=== PATIENT | male | born 1945 | race Caucasian/White ===

== ENCOUNTER 2019-07-10 10:09 | Emergency (ER) | payer MEDICARE, OTHER ==
--- NOTE | 2019-07-10 10:10 | EDM.PDOC ---
ED HPI GENERAL MEDICAL PROBLEM - General Chief Complaint: Gastrointestinal Problem Stated Complaint: AMBULANCE Time Seen by Provider: 07/10/19 10:10 Source of Information: Reports: Patient, EMS, Old Records, RN, RN Notes Reviewed History Limitations: Reports: No Limitations - History of Present Illness INITIAL COMMENTS - FREE TEXT/NARRATIVE: Pt arrives to ER from home by ambulance with report of onset of upper abdominal pain yesterday with nausea, followed by onset of black tarry stools. Pt states he had been to the clinic yesterday before the symptoms began and was diagnosed with a UTI caused by E-coli. Pt states he has had a poor appetite and nausea as a result of the UTI. Denies blood stool, blood emesis, or coffee ground emesis. Denies Hx of GI bleed. Onset: Gradual Onset Date: 07/09/19 Duration: Day(s):, Constant Location: Reports: Abdomen Quality: Reports: Ache Severity: Moderate Improves with: Reports: None Worsens with: Reports: None Associated Symptoms: Reports: No Other Symptoms - Related Data Allergies Allergy/AdvReac Type Severity Reaction Status Date / Time No Known Allergies Allergy Verified 07/10/19 10:07 Home Meds: Home Meds Ascorbic Acid [Vitamin C] 1 tab PO DAILY 08/12/14 [History] Aspirin [Ecotrin EC] 1 tab PO DAILY 08/12/14 [History] Clopidogrel [Plavix] 1 tab PO DAILY 08/12/14 [History] Multivitamin [Multi Vitamin Daily] 1 tab PO DAILY 08/12/14 [History] Simvastatin [Zocor] 1 tab PO BEDTIME 08/12/14 [History] Zinc 1 tab PO DAILY 08/12/14 [History] Cimetidine [Tagamet Hb] 200 mg PO DAILY 09/30/18 [History] Past Medical History HEENT History: Reports: Impaired Vision Other HEENT History: wears glasses. [place] Cardiovascular History: Reports: Hypertension Respiratory History: Reports: COPD Gastrointestinal History: Reports: Colon Polyp, GERD Genitourinary History: Reports: Acute Renal Failure, Hydronephrosis, Other (See Below) Other Genitourinary History: kidneys under stress due to dehydration Musculoskeletal History: Reports: Osteoarthritis Neurological History: Reports: CVA Psychiatric History: Reports: None Endocrine/Metabolic History: Reports: Other (See Below) Other Endocrine/Metabolic History: pre diabetic Hematologic History: Reports: None Immunologic History: Reports: None Oncologic (Cancer) History: Reports: Bladder, Malignant Melanoma Dermatologic History: Reports: Melanoma, Other (See Below) Other Dermatologic History: removed melanoma growth - Infectious Disease History Infectious Disease History: Reports: Chicken Pox, Measles - Past Surgical History HEENT Surgical History: Reports: Adenoidectomy, Tonsillectomy Cardiovascular Surgical History: Reports: None GI Surgical History: Reports: Colonoscopy, EGD, Polypectomy Other Female Surgeries/Procedures: bladder removed. lymph nodes around bladder removed Male Surgical History: Reports: Cystectomy, Prostatectomy, Vasectomy, Other ( See Below) Neurological Surgical History: Reports: None Musculoskeletal Surgical History: Reports: Shoulder Surgery Other Musculoskeletal Surgeries/Procedures:: left shoulder tendon repair Dermatological Surgical History: Reports: Skin Biopsy Social & Family History - Family History Family Medical History: Noncontributory - Tobacco Use Smoking Status *Q: Current Every Day Smoker Tobacco Use Within Last Twelve Months: Cigarettes - Caffeine Use Caffeine Use: Reports: None ED ROS GENERAL - Review of Systems Review Of Systems: ROS reveals no pertinent complaints other than HPI. ED EXAM, GI/ABD - Physical Exam Exam: See Below Exam Limited By: No Limitations General Appearance: Alert, No Apparent Distress, Thin, Other (Chronically ill appearing) Eyes: Bilateral: Normal Appearance (No scleral icterus), Pale Conjunctiva Nose: Normal Inspection Throat/Mouth: Normal Lips, Normal Voice, No Airway Compromise, Other (Dry oral mucus membranes) Head: Atraumatic, Normocephalic Neck: Normal Inspection, Supple, Non-Tender, Full Range of Motion Respiratory/Chest: No Respiratory Distress, No Accessory Muscle Use, Chest Non- Tender, Decreased Breath Sounds Cardiovascular: Regular Rate, Rhythm GI/Abdominal Exam: Normal Bowel Sounds, Soft, No Organomegaly, No Distention, No Abnormal Bruit, Tender (Mild epigastric tenderness to palpation). No: Guarding, Rigid, Rebound (Male) Exam: Deferred Rectal (Males) Exam: Black Stool, Heme + Stool Back Exam: Normal Inspection Extremities: Normal Inspection, Normal Range of Motion, No Pedal Edema Neurological: Alert, Oriented, No Motor/Sensory Deficits Psychiatric: Normal Mood Skin Exam: Warm, Dry, Intact, No Rash, Pallor Course - Vital Signs Last Recorded V/S: Last Vital Signs Temp 98.1 F 07/10/19 10:09 Pulse 94 07/10/19 10:09 Resp 18 07/10/19 10:09 BP 103/51 L 07/10/19 10:09 Pulse Ox 100 07/10/19 10:09 Orthostatic Blood Pressure [ 77/46 Standing] Orthostatic Blood Pressure [ 93/49 Sitting] Orthostatic Blood Pressure [ 91/43 Supine] Lightheaded with standing. - Orders/Labs/Meds Orders: Active Orders 24 hr Category Date Time Status Peripheral IV Care [RC] . DIRECTED Care 07/10/19 10:24 Active AMYLASE [CHEM] Stat Lab 07/10/19 10:36 Results COMPREHENSIVE METABOLIC PN,CMP [CHEM] Stat Lab 07/10/19 10:36 Results CULTURE URINE [RM] Stat Lab 07/10/19 10:50 Received LIPASE [CHEM] Stat Lab 07/10/19 10:36 Results Lactated Ringers [Ringers, Lactated] 1,000 ml Med 07/10/19 10:28 Active IV .BOLUS Pantoprazole [ProTONIX IV] 40 mg Med 07/10/19 11:15 Active Sodium Chloride 0.9% [Normal Saline] 100 ml IV .CONTINUOS Sodium Chloride 0.9% [Saline Flush] Med 07/10/19 10:24 Active 10 ml FLUSH ASDIRECTED PRN Peripheral IV Insertion Adult [OM.PC] Stat Oth 07/10/19 10:24 Ordered Medication Orders Lactated Ringer's (Ringers, Lactated) 1,000 mls @ 999 mls/hr IV .BOLUS ONE Stop: 07/10/19 11:28 Last Admin: 07/10/19 10:42 Dose: 999 mls/hr Pantoprazole Sodium 40 mg/ (Sodium Chloride) 100 mls @ 20 mls/hr IV .CONTINUOS JUNI Last Admin: 07/10/19 11:14 Dose: 20 mls/hr Sodium Chloride (Saline Flush) 10 ml FLUSH ASDIRECTED PRN PRN Reason: Keep Vein Open Last Admin: 07/10/19 10:42 Dose: 10 ml Labs: Laboratory Tests 07/10/19 07/10/19 07/10/19 Range/Units 10:36 10:36 10:36 WBC 20.5 H (5.0-10.0) 10^3/uL RBC 2.71 L (4.6-6.2) 10^6/uL Hgb 8.2 L (14.0-18.0) g/dL Hct 25.1 L (40.0-54.0) % MCV 92.6 (80-100) fL MCH 30.3 (27.0-34.0) pg MCHC 32.7 L (33.0-35.0) g/dL Plt Count 249 (150-450) 10^3/uL Neut % (Auto) 89.9 H (42.2-75.2) % Lymph % (Auto) 5.4 L (20.5-50.1) % Teller % (Auto) 4.6 (2-8) % Eos % (Auto) 0.0 L (1.0-3.0) % Baso % (Auto) 0.1 (0.0-1.0) % PT 9.5 (9.0-12.0) SEC INR 0.9 (0.9-1.2) APTT 22.5 (22.0-34.0) SEC Sodium 135 (135-145) mmol/L Potassium 4.6 (3.6-5.0) mmol/L Chloride 117 H (101-111) mmol/L Carbon Dioxide 10.0 L (21.0-31.0) mmol/L Anion Gap 12.6 Creatinine 2.9 H (0.6-1.3) mg/dL Est Cr Clr Drug Dosing 23.77 mL/min Estimated GFR (MDRD) 21 Glucose 142 H (74-105) mg/dL Lactic Acid (0.5-2.2) mmol/L Calcium 8.7 (8.4-10.2) mg/dl Total Bilirubin 0.5 (0.2-1.0) mg/dL AST 11 (10-42) IU/L ALT 18 (10-60) IU/L Alkaline Phosphatase 76 (42-121) IU/L Total Protein 6.1 L (6.7-8.2) g/dl Albumin 3.4 (3.2-5.5) g/dl Globulin 2.7 Albumin/Globulin Ratio 1.26 Amylase 67 (28-100) U/L Lipase 40 (22-51) U/L Urine Color (YELLOW) Urine Appearance (CLEAR) Urine pH (5.0-9.0) Ur Specific [place] (1.005-1.030) Urine Protein (NEGATIVE) Urine Glucose (UA) (NEGATIVE) Urine Ketones (NEGATIVE) Urine Occult Blood (NEGATIVE) Urine Nitrite (NEGATIVE) Urine Bilirubin (NEGATIVE) Urine Urobilinogen (0.2-1.0) mg/dL Ur Leukocyte Esterase (NEGATIVE) Urine RBC /HPF Urine WBC (0-5/HPF) /HPF Ur Epithelial Cells (NOT SEEN) /HPF Urine Bacteria (0-FEW/HPF) /HPF Granular Casts (NOT SEEN) /LPF Urine Mucus (NOT SEEN) /LPF 07/10/19 07/10/19 Range/Units 10:36 10:50 WBC (5.0-10.0) 10^3/uL RBC (4.6-6.2) 10^6/uL Hgb (14.0-18.0) g/dL Hct (40.0-54.0) % MCV (80-100) fL MCH (27.0-34.0) pg MCHC (33.0-35.0) g/dL Plt Count (150-450) 10^3/uL Neut % (Auto) (42.2-75.2) % Lymph % (Auto) (20.5-50.1) % Teller % (Auto) (2-8) % Eos % (Auto) (1.0-3.0) % Baso % (Auto) (0.0-1.0) % PT (9.0-12.0) SEC INR (0.9-1.2) APTT (22.0-34.0) SEC Sodium (135-145) mmol/L Potassium (3.6-5.0) mmol/L Chloride (101-111) mmol/L Carbon Dioxide (21.0-31.0) mmol/L Anion Gap Creatinine (0.6-1.3) mg/dL Est Cr Clr Drug Dosing mL/min Estimated GFR (MDRD) Glucose (74-105) mg/dL Lactic Acid 0.9 (0.5-2.2) mmol/L Calcium (8.4-10.2) mg/dl Total Bilirubin (0.2-1.0) mg/dL AST (10-42) IU/L ALT (10-60) IU/L Alkaline Phosphatase (42-121) IU/L Total Protein (6.7-8.2) g/dl Albumin (3.2-5.5) g/dl Globulin Albumin/Globulin Ratio Amylase (28-100) U/L Lipase (22-51) U/L Urine Color Yellow (YELLOW) Urine Appearance Clear (CLEAR) Urine pH 7.0 (5.0-9.0) Ur Specific [place] 1.010 (1.005-1.030) Urine Protein 30 H (NEGATIVE) Urine Glucose (UA) Negative (NEGATIVE) Urine Ketones Negative (NEGATIVE) Urine Occult Blood Trace-intact H (NEGATIVE) Urine Nitrite Negative (NEGATIVE) Urine Bilirubin Negative (NEGATIVE) Urine Urobilinogen 0.2 (0.2-1.0) mg/dL Ur Leukocyte Esterase Small H (NEGATIVE) Urine RBC 5-10 H /HPF Urine WBC >100 H (0-5/HPF) /HPF Ur Epithelial Cells Occasional (NOT SEEN) /HPF Urine Bacteria Few (0-FEW/HPF) /HPF Granular Casts Few (NOT SEEN) /LPF Urine Mucus Few H (NOT SEEN) /LPF Hemoccult stool: Positive Meds: Medications Generic Name Dose Route Start Last Admin Trade Name Freq PRN Reason Stop Dose Admin Lactated Ringer's 1,000 mls @ 999 mls/hr 07/10/19 10:28 07/10/19 10:42 Ringers, Lactated IV 07/10/19 11:28 999 mls/hr .BOLUS ONE Administration Pantoprazole Sodium 40 mg/ 100 mls @ 20 mls/hr 07/10/19 11:15 07/10/19 11:14 Sodium Chloride IV 20 mls/hr .CONTINUOS JUNI Administration Sodium Chloride 10 ml 07/10/19 10:24 07/10/19 10:42 Saline Flush FLUSH 10 ml ASDIRECTED PRN Administration Keep Vein Open Discontinued Medications Generic Name Dose Route Start Last Admin Trade Name Freq PRN Reason Stop Dose Admin Pantoprazole Sodium 80 mg 07/10/19 10:28 07/10/19 10:41 Protonix Iv IVPUSH 07/10/19 10:29 80 mg .BOLUS ONE Administration Departure - Departure Time of Disposition: 11:18 Disposition: DC/Tfer to Acute Hospital 02 Condition: Serious Clinical Impression: Upper GI bleed, Symptomatic anemia Acute on chronic kidney failure Qualifiers: Acute renal failure type: unspecified Chronic kidney disease stage: unspecified stage Qualified Code(s): N17.9 - Acute kidney failure, unspecified; N18.9 - Chronic kidney disease, unspecified - Discharge Information *PRESCRIPTION DRUG MONITORING PROGRAM REVIEWED*: Not Applicable *COPY OF PRESCRIPTION DRUG MONITORING REPORT IN PATIENT VINEET: Not Applicable Forms: ED Department Discharge, Interfacility Transfer EMTALA - My Orders Last 24 Hours: My Active Orders 07/10/19 10:24 Peripheral IV Care [RC] . DIRECTED Sodium Chloride 0.9% [Saline Flush] 10 ml FLUSH ASDIRECTED PRN Peripheral IV Insertion Adult [OM.PC] Stat 07/10/19 10:28 Lactated Ringers [Ringers, Lactated] 1,000 ml IV .BOLUS 07/10/19 10:36 AMYLASE [CHEM] Stat COMPREHENSIVE METABOLIC PN,CMP [CHEM] Stat LIPASE [CHEM] Stat 07/10/19 10:50 CULTURE URINE [RM] Stat 07/10/19 11:15 Pantoprazole [ProTONIX IV] 40 mg Sodium Chloride 0.9% [Normal Saline] 100 ml IV .CONTINUOS - Assessment/Plan Last 24 Hours: My Active Orders 07/10/19 10:24 Peripheral IV Care [RC] . DIRECTED Sodium Chloride 0.9% [Saline Flush] 10 ml FLUSH ASDIRECTED PRN Peripheral IV Insertion Adult [OM.PC] Stat 07/10/19 10:28 Lactated Ringers [Ringers, Lactated] 1,000 ml IV .BOLUS 07/10/19 10:36 AMYLASE [CHEM] Stat COMPREHENSIVE METABOLIC PN,CMP [CHEM] Stat LIPASE [CHEM] Stat 07/10/19 10:50 CULTURE URINE [RM] Stat 07/10/19 11:15 Pantoprazole [ProTONIX IV] 40 mg Sodium Chloride 0.9% [Normal Saline] 100 ml IV .CONTINUOS
[2019-07-10] MEDS ORDERED: Sodium Chloride 0.9% 10 ML Syringe FLUSH PRN (10:24)
[2019-07-10] MEDS ORDERED: Pantoprazole 40 MG Vial IVPUSH ONE (10:28)
[2019-07-10] MEDS ORDERED: Lactated Ringers 1,000 ML IV ONE (10:28)
[2019-07-10 10:35] VITALS: BP 103/51
[2019-07-10 11:09] LABS: ANION GAP 12.6
[2019-07-10] MEDS ORDERED: Pantoprazole 40 MG in Sodium Chloride 0.9% 100 ML IV SCH (11:15)
== END 2019-07-10 11:53 ==
LOC: DL.ED 10:09
DX: K92.2 Gastrointestinal hemorrhage, unspecified (principal); N17.9 Acute kidney failure, unspecified; I12.9 Hypertensive chronic kidney disease with stage 1 through stage 4 chronic kidney disease, or unspecified chronic kidney disease; N18.9 Chronic kidney disease, unspecified; D63.1 Anemia in chronic kidney disease; F17.210 Nicotine dependence, cigarettes, uncomplicated; Z86.73 Personal history of transient ischemic attack (TIA), and cerebral infarction without residual deficits; Z79.82 Long term (current) use of aspirin; Z79.899 Other long term (current) drug therapy
CPT/HCPCS: 36415; 80053; 81001; 82150; 82272; 83605; 83690; 85025; 85610; 85730; 87086; 87088; 87186; 96365; 96368; 96376; 99285; C9113; J7050; J7120

== ENCOUNTER → 2019-10-13 | Day surgery (SDC) | payer OTHER, MEDICARE ==
[~2019-10-13] MED LIST: Benzocaine 20% Topical Spray UD MUCMEM ONE; Dextrose 5%-0.45% NaCl 1,000 ML IV SCH; Midazolam 1 MG/ML 2 ML SDV IV ONE; Midazolam 1 MG/ML 2 ML SDV ONE
--- NOTE | 2019-10-13 10:17 | OR ---
DATE: 10/13/2019 PREOPERATIVE DIAGNOSIS: Personal history of prior duodenal bleeding, duodenal ulcer. POSTOPERATIVE DIAGNOSIS: Personal history of prior duodenal bleeding, duodenal ulcer. PROCEDURE: Esophagogastroduodenoscopy with photographs. ANESTHESIA: Conscious sedation with IV Versed. SPECIMEN: None. OPERATIVE FINDINGS: Persistent fresh blood in the duodenum. I could not identify an active bleeding site, however. He also has just a small hiatal hernia. RECOMMENDATION: He really should be evaluated by an in-hospital admission again. INDICATIONS FOR PROCEDURE: This 73-year-old male had been admitted to [facility] in July of this year for bleeding ulcer. He had a hemoglobin drop to 7 and was transfused. I do not have a new current hemoglobin on him. PROCEDURE IN DETAIL: After adequate preparation, the gastroscope was inserted into the esophagus. This was passed down to the distal esophagus. This shows a small 2 cm hiatal hernia. No evidence of esophagitis or bleeding strictures or masses. The scope was advanced into the stomach. He has some evidence of old blood within the stomach. This was easily irrigated clear and the rest of the exam of the stomach is normal. The scope was advanced through the pylorus into the duodenum. The 1st part of the duodenum appears to be normal, however, there is fresh blood at the junction of the 1st and 2nd parts of the duodenum. It was somewhat difficult to get the scope to pass through this portion. I was able to get down, however, eventually into the 3rd and 4th part of the duodenum. On withdrawal of the scope, he does have active fresh blood in the duodenum, but I could not find a bleeding site. Air was suctioned from the stomach, and the scope removed. [facility] /[id number] CC: [facility]
[2019-10-13 10:34] VITALS: PULSE 67
[2019-10-13 11:07] VITALS: BP 105/58
== END ==
LOC: DL.ENDO 07:34
PROVIDERS: ATTEND Surgery
DX: K26.4 Chronic or unspecified duodenal ulcer with hemorrhage (principal); K44.9 Diaphragmatic hernia without obstruction or gangrene; Z87.11 Personal history of peptic ulcer disease
CPT/HCPCS: 36415; 43235; 85025; A9270; J2250; 43239

== ENCOUNTER 2020-03-31 14:25 | Inpatient (IN) | payer OTHER, MEDICARE ==
[~2020-03-31 14:25] MED LIST changes: -Benzocaine 20% Topical Spray UD MUCMEM ONE; -Dextrose 5%-0.45% NaCl 1,000 ML IV SCH; -Midazolam 1 MG/ML 2 ML SDV IV ONE; -Midazolam 1 MG/ML 2 ML SDV ONE; +Sodium Chloride 0.9% 1,000 ML IV ONE
--- NOTE | 2020-03-31 14:27 | EDM.PDOC ---
ED HPI GENERAL MEDICAL PROBLEM - General Chief Complaint: General Stated Complaint: [facility] S[facility] Time Seen by Provider: 03/31/20 14:15 Source of Information: Reports: Patient History Limitations: Reports: No Limitations - History of Present Illness INITIAL COMMENTS - FREE TEXT/NARRATIVE: This 74 yo male patient was sent to the ED due to low blood pressure and dark stools. The patient was having a telemedicine appointment at the [facility] when he was sent to the ED for further evaluation and treatment. The patient reports he has noticed dark stools over the past 3-4 days. The patient reports he does have a history of a GI bleed about 1 year ago and has been on a "stomach medication" since that incident. The patient is also on Plavix due to a stroke (patient reports the stroke was about 10 years ago). 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 Onset Date: 03/28/20 Duration: Constant Location: Reports: Other Quality: Reports: Other Severity: Moderate Improves with: Reports: None Worsens with: Reports: None Context: Reports: Other Associated Symptoms: Reports: No Other Symptoms - Related Data Allergies Allergy/AdvReac Type Severity Reaction Status Date / Time No Known Allergies Allergy Verified 09/19/19 10:37 Home Meds: Home Meds Clopidogrel [Plavix] 75 mg PO DAILY 08/12/14 [History] Multivitamin [Multi Vitamin Daily] 1 tab PO DAILY 08/12/14 [History] Simvastatin [Zocor] 20 mg PO BEDTIME 08/12/14 [History] Zinc 50 mg PO DAILY 08/12/14 [History] Enalapril [Vasotec] 10 mg PO DAILY 09/19/19 [History] Cyanocobalamin (Vitamin B-12) [Vitamin B-12] 500 mcg PO DAILY 03/31/20 [History] Pantoprazole Sodium [Protonix] 40 mg PO DAILY 03/31/20 [History] cephALEXin [Keflex] 500 mg PO QID 03/31/20 [History] Past Medical History HEENT History: Reports: Impaired Vision, Macular Degeneration Other HEENT History: wears glasses. [place] Cardiovascular History: Reports: Hypertension Respiratory History: Reports: COPD Gastrointestinal History: Reports: Colon Polyp, GERD Genitourinary History: Reports: Acute Renal Failure, Hydronephrosis, Other (See Below) Other Genitourinary History: kidneys under stress due to dehydration Musculoskeletal History: Reports: Osteoarthritis Neurological History: Reports: CVA Psychiatric History: Reports: None Endocrine/Metabolic History: Reports: Other (See Below) Other Endocrine/Metabolic History: pre diabetic Hematologic History: Reports: Blood Transfusion(s) Immunologic History: Reports: None Oncologic (Cancer) History: Reports: Bladder, Malignant Melanoma Dermatologic History: Reports: Melanoma, Other (See Below) Other Dermatologic History: removed melanoma growth - Infectious Disease History Infectious Disease History: Reports: Chicken Pox, Measles Other Infectious Disease History: E-coli history - Past Surgical History Head Surgeries/Procedures: Reports: None HEENT Surgical History: Reports: Adenoidectomy, Tonsillectomy Cardiovascular Surgical History: Reports: None GI Surgical History: Reports: Colonoscopy, EGD, Polypectomy Other Female Surgeries/Procedures: bladder removed. lymph nodes around bladder removed Male Surgical History: Reports: Cystectomy, Prostatectomy, Vasectomy, Other ( See Below) Other Male Surgeries/Procedures: Pt states bladder replacement. Has external catheter. Bladder cancer history Neurological Surgical History: Reports: None Musculoskeletal Surgical History: Reports: Shoulder Surgery Other Musculoskeletal Surgeries/Procedures:: left shoulder tendon repair Dermatological Surgical History: Reports: Skin Biopsy Social & Family History - Family History Family Medical History: Noncontributory - Caffeine Use Caffeine Use: Reports: Soda Caffeine Use Comment: 6 soda daily ED ROS GENERAL - Review of Systems Review Of Systems: Comprehensive ROS is negative, except as noted in HPI. ED EXAM, GENERAL - Physical Exam Exam: See Below Exam Limited By: No Limitations General Appearance: Alert, WD/WN, Mild Distress Eye Exam: Bilateral Eye: EOMI, Normal Inspection, PERRL Ears: Normal External Exam, Normal Canal, Hearing Grossly Normal, Normal TMs Nose: Normal Inspection, Normal Mucosa, No Blood Throat/Mouth: Normal Inspection, Normal Lips, Normal Teeth, Normal Gums, Normal Oropharynx, Normal Voice, No Airway Compromise Head: Atraumatic, Normocephalic Neck: Normal Inspection, Supple, Non-Tender, Full Range of Motion Respiratory/Chest: No Respiratory Distress, Lungs Clear, Normal Breath Sounds, No Accessory Muscle Use, Chest Non-Tender Cardiovascular: Normal Peripheral Pulses, Regular Rate, Rhythm, No Edema, No Gallop, No JVD, No Murmur, No Rub GI/Abdominal: Normal Bowel Sounds, Soft, Non-Tender, No Organomegaly, No Distention, No Abnormal Bruit, No Mass (Male) Exam: Deferred Rectal (Males) Exam: Decreased Rectal Tone Back Exam: Normal Inspection, Full Range of Motion, NT Extremities: Normal Inspection, Normal Range of Motion, Non-Tender, Normal Capillary Refill, No Pedal Edema Neurological: Alert, Oriented, CN II-XII Intact, Normal Cognition, Normal Gait, Normal Reflexes, No Motor/Sensory Deficits Psychiatric: Normal Affect, Normal Mood Skin Exam: Warm, Dry, Intact, Normal Color, No Rash Lymphatic: No Adenopathy Course - Vital Signs Last Recorded V/S: Last Vital Signs Temp 36.2 C 03/31/20 14:08 Pulse 77 03/31/20 14:08 Resp 14 03/31/20 14:08 BP 97/42 L 03/31/20 14:08 Pulse Ox 100 03/31/20 14:08 Orthostatic Blood Pressure [ 82/43 Standing] Orthostatic Blood Pressure [ 83/57 Sitting] Orthostatic Blood Pressure [ 91/45 Supine] - Orders/Labs/Meds Orders: Active Orders 24 hr Category Date Time Status Admission Diagnosis [ADT] Urgent ADT 03/31/20 16:05 Ordered Admission Status [Patient Status] [ADT] Routine ADT 03/31/20 16:05 Ordered Orthostatic Vital Signs [RC] ASDIRECTED Care 03/31/20 14:57 Active Sodium Chloride 0.9% [Normal Saline] 1,000 ml Med 03/31/20 14:15 Active IV .BOLUS Medication Orders Sodium Chloride (Normal Saline) 1,000 mls @ 500 mls/hr IV .BOLUS ONE Stop: 03/31/20 16:14 Last Admin: 03/31/20 14:29 Dose: 500 mls/hr Labs: Laboratory Tests 03/31/20 03/31/20 Range/Units 14:32 14:32 WBC 9.9 (5.0-10.0) 10^3/uL RBC 3.79 L (4.6-6.2) 10^6/uL Hgb 11.3 L D (14.0-18.0) g/dL Hct 33.5 L (40.0-54.0) % MCV 88.4 (80-100) fL MCH 29.8 (27.0-34.0) pg MCHC 33.7 (33.0-35.0) g/dL Plt Count 255 (150-450) 10^3/uL Neut % (Auto) 73.7 (42.2-75.2) % Lymph % (Auto) 13.6 L (20.5-50.1) % Door % (Auto) 9.5 H (2-8) % Eos % (Auto) 3.0 (1.0-3.0) % Baso % (Auto) 0.2 (0.0-1.0) % Add Manual Diff Yes Neutrophils % (Manual) 72 (42-75) % Lymphocytes % (Manual) 15 L (20-50) % Monocytes % (Manual) 10 H (2-8) % Eosinophils % (Manual) 3 (1-3) % Sodium 129 L (136-145) mmol/L Potassium 5.6 H (3.5-5.1) mmol/L Chloride 101 (98-107) mmol/L Carbon Dioxide 13 L (21-32) mmol/L Anion Gap 20.6 H (7-13) mEq/L BUN 147 H (7-18) mg/dL Creatinine 4.75 H (0.70-1.30) mg/dL Est Cr Clr Drug Dosing 14.75 mL/min Estimated GFR (MDRD) 12 BUN/Creatinine Ratio 30.9 (No establ ref range) Glucose 182 H (74-99) mg/dL Calcium 8.2 L (8.5-10.1) mg/dL Total Bilirubin 0.3 (0.2-1.0) mg/dL AST 18 (15-37) U/L ALT 36 (16-63) U/L Alkaline Phosphatase 112 (46-116) U/L Total Protein 7.2 (6.4-8.2) g/dL Albumin 3.3 L (3.4-5.0) g/dL Globulin 3.9 Albumin/Globulin Ratio 0.85 Meds: Medications Generic Name Dose Route Start Last Admin Trade Name Freq PRN Reason Stop Dose Admin Sodium Chloride 1,000 mls @ 500 mls/hr 03/31/20 14:15 03/31/20 14:29 Normal Saline IV 03/31/20 16:14 500 mls/hr .BOLUS ONE Administration Departure - Departure Time of Disposition: 16:07 Disposition: Admitted As Inpatient 67 Condition: Fair Clinical Impression: Hyponatremia Hypotension Qualifiers: Hypotension type: unspecified hypotension type Qualified Code(s): I95.9 - Hypotension, unspecified Renal failure Qualifiers: Renal failure chronicity: unspecified chronicity Qualified Code(s): N19 - Unspecified kidney failure - Discharge Information *PRESCRIPTION DRUG MONITORING PROGRAM REVIEWED*: Not Applicable *COPY OF PRESCRIPTION DRUG MONITORING REPORT IN PATIENT VINEET: Not Applicable Care Plan Goals: Discussed the patient's history, examination and lab results with Dr. Cortez. Dr. Cortez accepted the patient for continued evaluation and management as an inpatient at [facility]. Sepsis Event Note - Evaluation Sepsis Screening Result: No Definite Risk - Focused Exam Vital Signs: Vital Signs Temp Pulse Resp BP Pulse Ox 03/31/20 14:08 36.2 C 77 14 97/42 L 100 Date Exam was Performed: 03/31/20 Time Exam was Performed: 16:07 - My Orders Last 24 Hours: My Active Orders 03/31/20 14:15 Sodium Chloride 0.9% [Normal Saline] 1,000 ml IV .BOLUS 03/31/20 14:57 Orthostatic Vital Signs [RC] ASDIRECTED 03/31/20 16:05 Admission Diagnosis [ADT] Urgent Admission Status [Patient Status] [ADT] Routine - Assessment/Plan Last 24 Hours: My Active Orders 03/31/20 14:15 Sodium Chloride 0.9% [Normal Saline] 1,000 ml IV .BOLUS 03/31/20 14:57 Orthostatic Vital Signs [RC] ASDIRECTED 03/31/20 16:05 Admission Diagnosis [ADT] Urgent Admission Status [Patient Status] [ADT] Routine
[2020-03-31 15:34] LABS: ANION GAP 20.6 mEq/L (7-13)
[2020-03-31] MEDS ORDERED: Ondansetron 4 MG/2 ML SDV IVPUSH PRN (18:00)
[2020-03-31] MEDS ORDERED: Temazepam 15 MG Cap PO PRN (18:00)
[2020-03-31] MEDS ORDERED: Ondansetron 4 MG Tab.DIS PO PRN (18:00)
[2020-03-31] MEDS ORDERED: Sodium Polystyrene Sulfonate 15 GM/60 ML Susp 60 ML Bot PO ONE (18:00)
[2020-03-31] MEDS ORDERED: Acetaminophen/HYDROcodone 325-10 MG Tab PO PRN (18:00)
[2020-03-31] MEDS ORDERED: Acetaminophen 325 MG Tab PO PRN (18:00)
--- NOTE | 2020-03-31 18:00 | PCM.HP ---
H&P History of Present Illness - General Date of Service: 03/31/20 Admit Problem/Dx: Admission Diagnosis/Problem Admission Diagnosis/Problem Hypotension Source of Information: Patient History Limitations: Reports: No Limitations - History of Present Illness Initial Comments - Free Text/Narative: 74-year-old gentleman with multiple medical problems. The patient has a history of prior stroke,History of GI bleed, pre-diabetes, chronic kidney disease stage IV followed by Dr. 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 The patient has been on multiple courses of antibiotics orally for urine infection. His symptoms of her nausea in the mornings. The patient went to the [place] [facility] for complaints of black stool for a few days, nausea in the mornings after taking antibiotics of Keflex. No associated fever or chills. He is incontinent to urine. In the clinic the patient was noted to have a blood pressure in the 80s and was sent to the emergency room. He was found to have multiple lab abnormalities and the provider requested further hospital evaluation and treatment. - Related Data Allergies/Adverse Reactions: Allergies Allergy/AdvReac Type Severity Reaction Status Date / Time No Known Allergies Allergy Verified 09/19/19 10:37 Home Medications: Home Meds Clopidogrel [Plavix] 75 mg PO DAILY 08/12/14 [History] Multivitamin [Multi Vitamin Daily] 1 tab PO DAILY 08/12/14 [History] Simvastatin [Zocor] 20 mg PO BEDTIME 08/12/14 [History] Zinc 50 mg PO DAILY 08/12/14 [History] Enalapril [Vasotec] 10 mg PO DAILY 09/19/19 [History] Ferrous Sulfate [Iron] 325 mg PO DAILY 03/31/20 [History] Pantoprazole Sodium [Protonix] 40 mg PO DAILY 03/31/20 [History] Vit A/C/E AC/Znox/Cupric Oxide [Eye Vitamin-Minerals Tablet] 1 tab PO DAILY [History] cephALEXin [Keflex] 500 mg PO QID 03/31/20 [History] Past Medical History HEENT History: Reports: Impaired Vision, Macular Degeneration Other HEENT History: wears glasses. [place] Cardiovascular History: Reports: Hypertension Respiratory History: Reports: COPD Gastrointestinal History: Reports: Colon Polyp, GERD Other Gastrointestinal History: duodenal ulcer Genitourinary History: Reports: Acute Renal Failure, Hydronephrosis, Other (See Below) Other Genitourinary History: kidneys under stress due to dehydration Musculoskeletal History: Reports: Osteoarthritis Neurological History: Reports: CVA Psychiatric History: Reports: None Endocrine/Metabolic History: Reports: Other (See Below) Other Endocrine/Metabolic History: pre diabetic Hematologic History: Reports: Blood Transfusion(s) Immunologic History: Reports: None Oncologic (Cancer) History: Reports: Bladder, Malignant Melanoma Dermatologic History: Reports: Melanoma, Other (See Below) Other Dermatologic History: removed melanoma growth - Infectious Disease History Infectious Disease History: Reports: Chicken Pox, Measles Other Infectious Disease History: E-coli history - Past Surgical History Head Surgeries/Procedures: Reports: None HEENT Surgical History: Reports: Adenoidectomy, Tonsillectomy Cardiovascular Surgical History: Reports: None GI Surgical History: Reports: Colonoscopy, EGD, Polypectomy Male Surgical History: Reports: Cystectomy, Prostatectomy, Vasectomy, Other ( See Below) Other Male Surgeries/Procedures: Pt states bladder replacement. Has external catheter at HS. Bladder cancer history Endocrine Surgical History: Reports: None Neurological Surgical History: Reports: None Musculoskeletal Surgical History: Reports: Shoulder Surgery Other Musculoskeletal Surgeries/Procedures:: left shoulder tendon repair Dermatological Surgical History: Reports: Skin Biopsy Social & Family History - Family History Family Medical History: Noncontributory - Tobacco Use Smoking Status *Q: Current Every Day Smoker Years of Tobacco use: 50 Packs/Tins Daily: 0.5 - Caffeine Use Caffeine Use: Reports: Soda Caffeine Use Comment: 6 soda daily - Recreational Drug Use Recreational Drug Use: No H&P Review of Systems - Review of Systems: Review Of Systems: See Below General: Reports: Malaise, Weakness. Denies: Fever, Chills Pulmonary: Denies: Shortness of Breath Cardiovascular: Denies: Chest Pain, Edema Gastrointestinal: Denies: Abdominal Pain Musculoskeletal: Denies: Neck Pain Psychiatric: Denies: Confusion Neurological: Reports: Dizziness. Denies: Confusion Exam - Exam Exam: See Below - Vital Signs Vital Signs: Last Vital Signs Temp 97.2 F 03/31/20 14:08 Pulse 77 03/31/20 14:08 Resp 14 03/31/20 14:08 BP 97/42 L 03/31/20 14:08 Pulse Ox 100 03/31/20 14:08 Orthostatic Blood Pressure [ 82/43 Standing] Orthostatic Blood Pressure [ 83/57 Sitting] Orthostatic Blood Pressure [ 91/45 Supine] Weight: 183 lb 3.2 oz - Exam General: Alert, Oriented Neck: Supple Lungs: Clear to Auscultation, Normal Respiratory Effort Cardiovascular: Regular Rate, Regular Rhythm GI/Abdominal Exam: Normal Bowel Sounds, Soft, Non-Tender Extremities: No Pedal Edema - Patient Data Lab Results Last 24 hrs: Laboratory Results - last 24 hr 03/31/20 03/31/20 Range/Units 14:32 14:32 WBC 9.9 (5.0-10.0) 10^3/uL RBC 3.79 L (4.6-6.2) 10^6/uL Hgb 11.3 L D (14.0-18.0) g/dL Hct 33.5 L (40.0-54.0) % MCV 88.4 (80-100) fL MCH 29.8 (27.0-34.0) pg MCHC 33.7 (33.0-35.0) g/dL Plt Count 255 (150-450) 10^3/uL Neut % (Auto) 73.7 (42.2-75.2) % Lymph % (Auto) 13.6 L (20.5-50.1) % Sac % (Auto) 9.5 H (2-8) % Eos % (Auto) 3.0 (1.0-3.0) % Baso % (Auto) 0.2 (0.0-1.0) % Add Manual Diff Yes Neutrophils % (Manual) 72 (42-75) % Lymphocytes % (Manual) 15 L (20-50) % Monocytes % (Manual) 10 H (2-8) % Eosinophils % (Manual) 3 (1-3) % Sodium 129 L (136-145) mmol/L Potassium 5.6 H (3.5-5.1) mmol/L Chloride 101 (98-107) mmol/L Carbon Dioxide 13 L (21-32) mmol/L Anion Gap 20.6 H (7-13) mEq/L BUN 147 H (7-18) mg/dL Creatinine 4.75 H (0.70-1.30) mg/dL Est Cr Clr Drug Dosing 14.75 mL/min Estimated GFR (MDRD) 12 BUN/Creatinine Ratio 30.9 (No establ ref range) Glucose 182 H (74-99) mg/dL Calcium 8.2 L (8.5-10.1) mg/dL Total Bilirubin 0.3 (0.2-1.0) mg/dL AST 18 (15-37) U/L ALT 36 (16-63) U/L Alkaline Phosphatase 112 (46-116) U/L Total Protein 7.2 (6.4-8.2) g/dL Albumin 3.3 L (3.4-5.0) g/dL Globulin 3.9 Albumin/Globulin Ratio 0.85 Result Diagrams: 03/31/20 14:32 03/31/20 14:32 [place] Results Last 24 hrs: Microbiology 03/31/20 14:11 Stool Occult Blood (NICANOR) - Final Stool / Feces - Problem List (1) Hyperkalemia SNOMED Code(s): 48973641 ICD Code: E87.5 - HYPERKALEMIA Status: Acute Current Visit: Yes (2) Diabetes SNOMED Code(s): 11934701 ICD Code: E11.9 - TYPE 2 DIABETES MELLITUS WITHOUT COMPLICATIONS Status: Acute Current Visit: Yes (3) Peripheral artery disease SNOMED Code(s): 685179949 ICD Code: I73.9 - PERIPHERAL VASCULAR DISEASE, UNSPECIFIED Status: Acute Current Visit: Yes (4) Hyponatremia SNOMED Code(s): 71639508 ICD Code: E87.1 - HYPO-OSMOLALITY AND HYPONATREMIA Status: Acute Current Visit: Yes (5) Hypotension SNOMED Code(s): 18303329 ICD Code: I95.9 - HYPOTENSION, UNSPECIFIED Status: Acute Current Visit: Yes Qualifiers: Hypotension type: unspecified hypotension type Qualified Code(s): I95.9 - Hypotension, unspecified (6) Renal failure SNOMED Code(s): 34308770 ICD Code: N19 - UNSPECIFIED KIDNEY FAILURE Status: Acute Current Visit: Yes Qualifiers: Renal failure chronicity: unspecified chronicity Qualified Code(s): N19 - Unspecified kidney failure (7) Acute on chronic kidney failure SNOMED Code(s): 903281804 ICD Code: N17.9 - ACUTE KIDNEY FAILURE, UNSPECIFIED; N18.9 - CHRONIC KIDNEY DISEASE, UNSPECIFIED Status: Acute Current Visit: No Qualifiers: Acute renal failure type: unspecified Chronic kidney disease stage: unspecified stage Qualified Code(s): N17.9 - Acute kidney failure, unspecified ; N18.9 - Chronic kidney disease, unspecified Problem List Initiated/Reviewed/Updated: Yes Orders Last 24hrs: Active Orders 24 hr Category Date Time Status Admission Diagnosis [ADT] Urgent ADT 03/31/20 16:05 Ordered Admission Status [Patient Status] [ADT] Routine ADT 03/31/20 16:05 Active Glucose [Blood Glucose Check, Bedside] [RC] QIDACANDBED Care 03/31/20 17:41 Ordered Orthostatic Vital Signs [RC] ASDIRECTED Care 03/31/20 14:57 Active BASIC METABOLIC PANEL,BMP [CHEM] AM Lab 04/01/20 05:15 Ordered CBC WITH AUTO DIFF [HEME] AM Lab 04/01/20 05:15 Ordered CULTURE URINE [RM] Routine Lab 03/31/20 17:47 Ordered UA W/MICROSCOPIC [URIN] Routine Lab 03/31/20 17:47 Ordered Clopidogrel [Plavix] Med 04/01/20 09:00 Ordered 75 mg PO DAILY Ferrous Sulfate Med 04/01/20 09:00 Ordered 325 mg PO DAILY Insulin Lispro [HumaLOG] Med 03/31/20 21:00 Ordered See Protocol SUBCUT ACBED Multivitamin [Multi-Vitamin Daily] Med 04/01/20 09:00 Ordered 1 tab PO DAILY Pantoprazole Sodium [Protonix] Med 04/01/20 09:00 Ordered 40 mg PO DAILY Simvastatin [Zocor] Med 03/31/20 21:00 Ordered 20 mg PO BEDTIME Sodium Chloride 0.9% @ 100 MLS/HR(1,000ml) Med 03/31/20 17:45 Ordered Sodium Chloride 0.9% [Normal Saline] 1,000 ml IV ASDIRECTED Sodium Polystyrene Sulfonate [Kayexalate] Med 03/31/20 17:40 Once 45 gm PO NOW ONE Vit A/C/E AC/Znox/Cupric Oxide [Eye Vitamin-Minerals Med 04/01/20 09:00 Ordered Tablet] 1 tab PO DAILY Zinc [Zinc] Med 04/01/20 09:00 Ordered 50 mg PO DAILY Medication Orders Clopidogrel Bisulfate (Plavix) 75 mg PO DAILY JUNI Ferrous Sulfate (Ferrous Sulfate) 325 mg PO DAILY JUNI Sodium Chloride (Normal Saline) 1,000 mls @ 100 mls/hr IV ASDIRECTED [facility] Insulin Human Lispro (Humalog) 0 unit SUBCUT ACBED JUNI; Protocol Non-Formulary Medication (Multivitamin [Multi-Vitamin Daily]) 1 tab PO DAILY JUNI Non-Formulary Medication (Pantoprazole Sodium [Protonix]) 40 mg PO DAILY JUNI Non-Formulary Medication (Simvastatin [Zocor]) 20 mg PO BEDTIME JUNI Non-Formulary Medication (Vit A/C/E Ac/Znox/Cupric Oxide [Eye Vitamin-Minerals Tablet]) 1 tab PO DAILY JUNI Non-Formulary Medication (Zinc [Zinc]) 50 mg PO DAILY JUNI Sodium Polystyrene Sulfonate (Kayexalate) 45 gm PO NOW ONE Stop: 03/31/20 17:41 Assessment/Plan Comment:: Presented with nausea in the mornings, black stool. Was found to have worsening renal failure, hyperkalemia and hyponatremia. Acute renal failure with a history of chronic kidney disease stage IV Bun 142, Cr. 2.9 in jul 2019 Well hold QUEENIE inhibitor Hydrate the patient Recheck electrolytes and renal function in the morning Consider nephrology consultation soon as outpatient Renal ultrasound in the morning Hyperkalemia, hyponatremia with advanced renal failure Stop QUEENIE inhibitor Give Kayexalate Hydration Hypotension noted in the emergency room Well hold QUEENIE inhibitor Give IV fluids History of stroke Continue Plavix History of prior GI bleed Continue proton pump inhibitor Abnormal UA In the setting of neobladder for history of bladder cancer Check UA For now hold off on antibiotics Black stool With history of iron deficiency anemia on iron Occult blood was negative from stool Anemia might be secondary to renal failure as well Well monitor hemoglobin Expect some drop with hydration Continue proton pump inhibitor and iron Diabetes Was told he has prediabetes On no home medications Will follow blood sugars Use supplemental insulin as needed DVT prophylaxis with subcutaneous heparin Will discontinue if there is evidence of GI bleed
[2020-03-31] MEDS: Sodium Chloride 0.9% 1,000 ML IV SCH (18:31)
[2020-03-31] MEDS: Simvastatin 10 MG Tab PO SCH (21:42)
[2020-03-31] MEDS: Heparin Sodium 5,000 Units/ML Vial SUBCUT SCH (21:43)
[2020-03-31] MEDS: Insulin Lispro 100 Units/ML 3 ML Vial SUBCUT SCH (23:14)
[2020-04-01] MEDS: Sodium Chloride 0.9% 1,000 ML IV SCH ×3 (03:31→23:13)
[2020-04-01] MEDS: Heparin Sodium 5,000 Units/ML Vial SUBCUT SCH ×3 (05:41→21:04)
[2020-04-01] MEDS: Pantoprazole 40 MG Tab.CR PO SCH (05:42)
[2020-04-01 06:44] LABS: ANION GAP 18.1 mEq/L (7-13)
[2020-04-01] MEDS: Insulin Lispro 100 Units/ML 3 ML Vial SUBCUT SCH ×2 (08:17→11:25)
[2020-04-01] MEDS ORDERED: ZINC 50 MG PO SCH (09:00)
[2020-04-01] MEDS ORDERED: Non-Formulary Medication 1 Each (Vit A/C/E Ac/Znox/Cupric Oxide [Eye Vitamin-Minerals Tabl PO SCH (09:00)
[2020-04-01] MEDS: Multivitamins,Therapeutic Tab PO SCH (09:44)
[2020-04-01] MEDS: Clopidogrel 75 MG Tab PO SCH (09:44)
[2020-04-01] MEDS: Ferrous Sulfate 325 MG Tab PO SCH (09:44)
--- NOTE | 2020-04-01 11:11 | PCM.PN ---
- General Info Date of Service: 04/01/20 Admission Dx/Problem (Free Text): Admission Diagnosis/Problem Admission Diagnosis/Problem Hypotension Subjective Update: Remained stable. Had multiple bowel movements following Kayexalate. Stool was black. No blood in it. No associated abdominal pain. No chest pain, no shortness of breath. Did not develop edema. Has been generally weak, had associated nausea prior to admission 4 days. Functional Status: Reports: Tolerating Diet - Review of Systems General: Reports: Weakness Pulmonary: Denies: Shortness of Breath, Wheezing Cardiovascular: Denies: Chest Pain, Edema Genitourinary: Reports: Incontinence - Patient Data Vitals - Most Recent: Last Vital Signs Temp 98.7 F 04/01/20 08:00 Pulse 71 04/01/20 08:00 Resp 18 04/01/20 08:00 BP 97/45 L 04/01/20 08:00 Pulse Ox 100 04/01/20 08:00 Orthostatic Blood Pressure [ 82/43 Standing] Orthostatic Blood Pressure [ 83/57 Sitting] Orthostatic Blood Pressure [ 91/45 Supine] Weight - Most Recent: 183 lb 3.2 oz I&O - Last 24 Hours: Intake & Output 03/31/20 04/01/20 04/01/20 22:59 06:59 14:59 Intake Total 617 550 Output Total 100 975 Balance 517 -425 Lab Results Last 24 Hours: Laboratory Results - last 24 hr 03/31/20 03/31/20 03/31/20 Range/Units 14:32 14:32 20:10 WBC 9.9 (5.0-10.0) 10^3/uL RBC 3.79 L (4.6-6.2) 10^6/uL Hgb 11.3 L D (14.0-18.0) g/dL Hct 33.5 L (40.0-54.0) % MCV 88.4 (80-100) fL MCH 29.8 (27.0-34.0) pg MCHC 33.7 (33.0-35.0) g/dL Plt Count 255 (150-450) 10^3/uL Neut % (Auto) 73.7 (42.2-75.2) % Lymph % (Auto) 13.6 L (20.5-50.1) % [place] % (Auto) 9.5 H (2-8) % Eos % (Auto) 3.0 (1.0-3.0) % Baso % (Auto) 0.2 (0.0-1.0) % Add Manual Diff Yes Neutrophils % (Manual) 72 (42-75) % Lymphocytes % (Manual) 15 L (20-50) % Monocytes % (Manual) 10 H (2-8) % Eosinophils % (Manual) 3 (1-3) % Sodium 129 L (136-145) mmol/L Potassium 5.6 H (3.5-5.1) mmol/L Chloride 101 (98-107) mmol/L Carbon Dioxide 13 L (21-32) mmol/L Anion Gap 20.6 H (7-13) mEq/L BUN 147 H (7-18) mg/dL Creatinine 4.75 H (0.70-1.30) mg/dL Est Cr Clr Drug Dosing 14.75 mL/min Estimated GFR (MDRD) 12 BUN/Creatinine Ratio 30.9 (No establ ref range) Glucose 182 H (74-99) mg/dL POC Glucose (83-110) mg/dl Calcium 8.2 L (8.5-10.1) mg/dL Total Bilirubin 0.3 (0.2-1.0) mg/dL AST 18 (15-37) U/L ALT 36 (16-63) U/L Alkaline Phosphatase 112 (46-116) U/L Total Protein 7.2 (6.4-8.2) g/dL Albumin 3.3 L (3.4-5.0) g/dL Globulin 3.9 Albumin/Globulin Ratio 0.85 Urine Color Yellow (YELLOW) Urine Appearance Turbid (CLEAR) Urine pH 6.5 (5.0-9.0) Ur Specific [place] 1.020 (1.005-1.030) Urine Protein Trace H (NEGATIVE) Urine Glucose (UA) Negative (NEGATIVE) Urine Ketones Negative (NEGATIVE) Urine Occult Blood Trace-lysed H (NEGATIVE) Urine Nitrite Positive H (NEGATIVE) Urine Bilirubin Negative (NEGATIVE) Urine Urobilinogen 0.2 (0.2-1.0) mg/dL Ur Leukocyte Esterase Trace H (NEGATIVE) Urine RBC 5-10 H /HPF Urine WBC 50-75 H (0-5/HPF) /HPF Ur Epithelial Cells Rare (NOT SEEN) /HPF Amorphous Sediment Moderate (NOT SEEN) /HPF Urine Bacteria Occasional (0-FEW/HPF) /HPF Urine Mucus Few H (NOT SEEN) /LPF 03/31/20 04/01/20 04/01/20 Range/Units 20:48 06:19 06:19 WBC 8.0 (5.0-10.0) 10^3/uL RBC 3.42 L (4.6-6.2) 10^6/uL Hgb 10.1 L (14.0-18.0) g/dL Hct 30.3 L (40.0-54.0) % MCV 88.6 (80-100) fL MCH 29.5 (27.0-34.0) pg MCHC 33.3 (33.0-35.0) g/dL Plt Count 255 (150-450) 10^3/uL Neut % (Auto) 64.0 (42.2-75.2) % Lymph % (Auto) 20.4 L (20.5-50.1) % [place] % (Auto) 9.3 H (2-8) % Eos % (Auto) 5.9 H (1.0-3.0) % Baso % (Auto) 0.4 (0.0-1.0) % Add Manual Diff Neutrophils % (Manual) (42-75) % Lymphocytes % (Manual) (20-50) % Monocytes % (Manual) (2-8) % Eosinophils % (Manual) (1-3) % Sodium 137 (136-145) mmol/L Potassium 5.1 (3.5-5.1) mmol/L Chloride 107 (98-107) mmol/L Carbon Dioxide 17 L (21-32) mmol/L Anion Gap 18.1 H (7-13) mEq/L BUN 130 H (7-18) mg/dL Creatinine 3.77 H (0.70-1.30) mg/dL Est Cr Clr Drug Dosing 18.59 mL/min Estimated GFR (MDRD) 16 BUN/Creatinine Ratio (No establ ref range) Glucose 84 (74-99) mg/dL POC Glucose 103 (83-110) mg/dl Calcium 8.0 L (8.5-10.1) mg/dL Total Bilirubin (0.2-1.0) mg/dL AST (15-37) U/L ALT (16-63) U/L Alkaline Phosphatase (46-116) U/L Total Protein (6.4-8.2) g/dL Albumin (3.4-5.0) g/dL Globulin Albumin/Globulin Ratio Urine Color (YELLOW) Urine Appearance (CLEAR) Urine pH (5.0-9.0) Ur Specific [place] (1.005-1.030) Urine Protein (NEGATIVE) Urine Glucose (UA) (NEGATIVE) Urine Ketones (NEGATIVE) Urine Occult Blood (NEGATIVE) Urine Nitrite (NEGATIVE) Urine Bilirubin (NEGATIVE) Urine Urobilinogen (0.2-1.0) mg/dL Ur Leukocyte Esterase (NEGATIVE) Urine RBC /HPF Urine WBC (0-5/HPF) /HPF Ur Epithelial Cells (NOT SEEN) /HPF Amorphous Sediment (NOT SEEN) /HPF Urine Bacteria (0-FEW/HPF) /HPF Urine Mucus (NOT SEEN) /LPF 04/01/20 Range/Units 08:02 WBC (5.0-10.0) 10^3/uL RBC (4.6-6.2) 10^6/uL Hgb (14.0-18.0) g/dL Hct (40.0-54.0) % MCV (80-100) fL MCH (27.0-34.0) pg MCHC (33.0-35.0) g/dL Plt Count (150-450) 10^3/uL Neut % (Auto) (42.2-75.2) % Lymph % (Auto) (20.5-50.1) % [place] % (Auto) (2-8) % Eos % (Auto) (1.0-3.0) % Baso % (Auto) (0.0-1.0) % Add Manual Diff Neutrophils % (Manual) (42-75) % Lymphocytes % (Manual) (20-50) % Monocytes % (Manual) (2-8) % Eosinophils % (Manual) (1-3) % Sodium (136-145) mmol/L Potassium (3.5-5.1) mmol/L Chloride (98-107) mmol/L Carbon Dioxide (21-32) mmol/L Anion Gap (7-13) mEq/L BUN (7-18) mg/dL Creatinine (0.70-1.30) mg/dL Est Cr Clr Drug Dosing mL/min Estimated GFR (MDRD) BUN/Creatinine Ratio (No establ ref range) Glucose (74-99) mg/dL POC Glucose 86 (83-110) mg/dl Calcium (8.5-10.1) mg/dL Total Bilirubin (0.2-1.0) mg/dL AST (15-37) U/L ALT (16-63) U/L Alkaline Phosphatase (46-116) U/L Total Protein (6.4-8.2) g/dL Albumin (3.4-5.0) g/dL Globulin Albumin/Globulin Ratio Urine Color (YELLOW) Urine Appearance (CLEAR) Urine pH (5.0-9.0) Ur Specific [place] (1.005-1.030) Urine Protein (NEGATIVE) Urine Glucose (UA) (NEGATIVE) Urine Ketones (NEGATIVE) Urine Occult Blood (NEGATIVE) Urine Nitrite (NEGATIVE) Urine Bilirubin (NEGATIVE) Urine Urobilinogen (0.2-1.0) mg/dL Ur Leukocyte Esterase (NEGATIVE) Urine RBC /HPF Urine WBC (0-5/HPF) /HPF Ur Epithelial Cells (NOT SEEN) /HPF Amorphous Sediment (NOT SEEN) /HPF Urine Bacteria (0-FEW/HPF) /HPF Urine Mucus (NOT SEEN) /LPF [place] Results Last 24 Hours: Microbiology 03/31/20 14:11 Stool Occult Blood (NICANOR) - Final Stool / Feces Med Orders - Current: Current Medications Acetaminophen (Tylenol) 650 mg PO Q4H PRN PRN Reason: Pain (Mild 1-3)/fever Hydrocodone Bitart/Acetaminophen ([place] 325-10 Mg) 1 tab PO Q4H PRN PRN Reason: Pain (moderate 4-6) Clopidogrel Bisulfate (Plavix) 75 mg PO DAILY [facility] Last Admin: 04/01/20 09:44 Dose: 75 mg Ferrous Sulfate (Ferrous Sulfate) 325 mg PO DAILY [facility] Last Admin: 04/01/20 09:44 Dose: 325 mg Heparin Sodium (Porcine) (Heparin Sodium) 5,000 units SUBCUT Q8HR [facility] Last Admin: 04/01/20 05:41 Dose: 5,000 units Sodium Chloride (Normal Saline) 1,000 mls @ 100 mls/hr IV ASDIRECTED [facility] Last Admin: 04/01/20 03:31 Dose: 100 mls/hr Insulin Human Lispro (Humalog) 0 unit SUBCUT ACBED [facility]; Protocol Last Admin: 04/01/20 08:17 Dose: Not Given Multivitamins (Thera) 1 each PO DAILY [facility] Last Admin: 04/01/20 09:44 Dose: 1 each Ondansetron HCl (Zofran Odt) 4 mg PO Q6H PRN PRN Reason: nausea, able to take PO Ondansetron HCl (Zofran) 4 mg IVPUSH Q6H PRN PRN Reason: Nausea/Vomiting Pantoprazole Sodium (Protonix) 40 mg PO ACBREAKFAST [facility] Last Admin: 04/01/20 05:42 Dose: 40 mg Simvastatin (Zocor) 20 mg PO BEDTIME [facility] Last Admin: 03/31/20 21:42 Dose: 20 mg Temazepam (Restoril) 15 mg PO BEDTIME PRN PRN Reason: Sleep Discontinued Medications Sodium Chloride (Normal Saline) 1,000 mls @ 500 mls/hr IV .BOLUS ONE Stop: 03/31/20 16:14 Last Admin: 03/31/20 14:29 Dose: 500 mls/hr Sodium Polystyrene Sulfonate (Kayexalate) 45 gm PO NOW ONE Stop: 03/31/20 18:01 Last Admin: 03/31/20 18:31 Dose: 45 gm - Exam General: Alert, Oriented Neck: Supple Lungs: Clear to Auscultation, Normal Respiratory Effort Cardiovascular: Regular Rate, Regular Rhythm GI/Abdominal Exam: Normal Bowel Sounds, Soft, Non-Tender Back Exam: Normal Inspection Extremities: No Pedal Edema Sepsis Event Note - Evaluation Sepsis Screening Result: No Definite Risk - Focused Exam Vital Signs: Vital Signs Temp Pulse Resp BP Pulse Ox 04/01/20 08:00 98.7 F 71 18 97/45 L 100 04/01/20 03:40 98 F 75 20 83/44 L 100 Date Exam was Performed: 04/01/20 Time Exam was Performed: 11:07 - Problem List & Annotations (1) Hyperkalemia SNOMED Code(s): 79852706 Code(s): E87.5 - HYPERKALEMIA Status: Acute Current Visit: Yes (2) Diabetes SNOMED Code(s): 00408564 Code(s): E11.9 - TYPE 2 DIABETES MELLITUS WITHOUT COMPLICATIONS Status: Acute Current Visit: Yes (3) Peripheral artery disease SNOMED Code(s): 634968024 Code(s): I73.9 - PERIPHERAL VASCULAR DISEASE, UNSPECIFIED Status: Acute Current Visit: Yes (4) Hyponatremia SNOMED Code(s): 87363892 Code(s): E87.1 - HYPO-OSMOLALITY AND HYPONATREMIA Status: Acute Current Visit: Yes (5) Hypotension SNOMED Code(s): 49610810 Code(s): I95.9 - HYPOTENSION, UNSPECIFIED Status: Acute Current Visit: Yes Qualifiers: Hypotension type: unspecified hypotension type Qualified Code(s): I95.9 - Hypotension, unspecified (6) Renal failure SNOMED Code(s): 46238705 Code(s): N19 - UNSPECIFIED KIDNEY FAILURE Status: Acute Current Visit: Yes Qualifiers: Renal failure chronicity: unspecified chronicity Qualified Code(s): N19 - Unspecified kidney failure (7) Acute on chronic kidney failure SNOMED Code(s): 396683057 Code(s): N17.9 - ACUTE KIDNEY FAILURE, UNSPECIFIED; N18.9 - CHRONIC KIDNEY DISEASE, UNSPECIFIED Status: Acute Current Visit: No Qualifiers: Acute renal failure type: unspecified Chronic kidney disease stage: unspecified stage Qualified Code(s): N17.9 - Acute kidney failure, unspecified ; N18.9 - Chronic kidney disease, unspecified - Problem List Review Problem List Initiated/Reviewed/Updated: Yes - My Orders Last 24 Hours: My Active Orders 03/31/20 17:41 Glucose [Blood Glucose Check, Bedside] [RC] QIDACANDBED 03/31/20 17:45 Sodium Chloride 0.9% [Normal Saline] 1,000 ml IV ASDIRECTED 03/31/20 18:00 Up ad Aydee [RC] ASDIRECTED Acetaminophen [Tylenol] 650 mg PO Q4H PRN Acetaminophen/HYDROcodone [[place] 325-10 MG] 1 tab PO Q4H PRN Ondansetron [Zofran ODT] 4 mg PO Q6H PRN Ondansetron [Zofran] 4 mg IVPUSH Q6H PRN Temazepam [Restoril] 15 mg PO BEDTIME PRN Resuscitation Status Routine 03/31/20 18:01 Oxygen Therapy [RC] .PRN VTE/DVT Education [RC] PER UNIT ROUTINE Vital Signs [RC] 00,04,08,12,16,20 Antiembolic Hose [OM.PC] Per Unit Routine 03/31/20 18:02 Antiembolic Devices [RC] 08,20 03/31/20 20:10 CULTURE URINE [RM] Routine 03/31/20 21:00 Insulin Lispro [HumaLOG] See Protocol SUBCUT ACBED Simvastatin [Zocor] 20 mg PO BEDTIME 03/31/20 22:00 Heparin Sodium 5,000 units SUBCUT Q8HR 04/01/20 06:00 Pantoprazole [ProTONIX] 40 mg PO ACBREAKFAST 04/01/20 09:00 Clopidogrel [Plavix] 75 mg PO DAILY Ferrous Sulfate 325 mg PO DAILY Multivitamins,Therapeutic [Thera] 1 each PO DAILY 04/02/20 05:15 BASIC METABOLIC PANEL,BMP [CHEM] AM CBC WITH AUTO DIFF [HEME] AM - Plan Plan:: Presented with nausea in the mornings, black stool. Was found to have worsening renal failure, hyperkalemia and hyponatremia. Acute renal failure with a history of chronic kidney disease stage IV Bun 142, Cr. 2.9 in jul 2019 Appears improving Well continue to hold QUEENIE inhibitor Continue to Hydrate the patient Recheck electrolytes and renal function in the morning Called and discussed with the patient's primary abstract searcher, Dr. Elder. Plan for outpatient follow-up Will obtain Renal ultrasound Hyperkalemia, hyponatremia with advanced renal failure Improved Stopped QUEENIE inhibitor Given Kayexalate cont Hydration Hypotension noted in the emergency room Well hold QUEENIE inhibitor Give IV fluids History of stroke Continue Plavix History of prior GI bleed Continue proton pump inhibitor Abnormal UA In the setting of neobladder for history of bladder cancer Pending urine culture For now hold off on antibiotics Black stool With history of iron deficiency anemia on iron Occult blood was negative from stool Anemia might be secondary to renal failure as well Well monitor hemoglobin Expect some drop with hydration Continue proton pump inhibitor and iron Diabetes Was told he has prediabetes On no home medications Blood sugar is fairly controlled DVT prophylaxis with subcutaneous heparin Will discontinue if there is evidence of GI bleed
--- NOTE | 2020-04-01 16:29 | US ---
EXAMINATION: Retroperitoneal Comp SEX: Male AGE: 74 years CLINICAL HISTORY: 74-year-old male with acute kidney injury; elevated creatinine (4.0) and BUN who, significantly, has a history of BLADDER CANCER; resection 2012 with "Pranav urinary bladder" and condum catheter. Malignant melanoma. Urinary retention. Interpretation: Abnormal. 1. Symmetric distended urinary "bladder" in the bladder with a volume calculated at 604 mL. No ureteral "jets" identified. 2. Normal reniform size, axis, configuration bilaterally with abnormal dilatation, particularly left, pyelocalyceal collecting system. 3. No cystic or solid renal cortical mass lesion. No perinephric fluid collections. 4. No echogenic "shadowing" calcifications either kidney. Discussion: Abnormally distended Pranav "bladder". Signs of obstructive uropathy left kidney (pyelocaliectasis). Mild pyelectasis on the right.
[2020-04-01] MEDS: Simvastatin 10 MG Tab PO SCH (21:03)
[2020-04-02] MEDS: Pantoprazole 40 MG Tab.CR PO SCH (05:39)
[2020-04-02] MEDS: Heparin Sodium 5,000 Units/ML Vial SUBCUT SCH (05:40)
[2020-04-02 06:29] LABS: ANION GAP 17.3 mEq/L (7-13)
[2020-04-02] MEDS: Clopidogrel 75 MG Tab PO SCH (09:29)
[2020-04-02] MEDS: Ferrous Sulfate 325 MG Tab PO SCH (09:29)
[2020-04-02] MEDS: Multivitamins,Therapeutic Tab PO SCH (09:29)
[2020-04-02] MEDS: Sodium Chloride 0.9% 1,000 ML IV SCH (09:34)
--- NOTE | 2020-04-02 09:58 | PCM.DCSUM1 ---
Discharge Summary - Hospital Course Free Text/Narrative:: Presented with nausea in the mornings, black stool. Was found to have worsening renal failure, hyperkalemia and hyponatremia. Acute renal failure with a history of chronic kidney disease stage IV Bun 142, Cr. 2.9 in jul 2019 on admission cr. 4.7, bun 147 improved with holding QUEENIE inhibitor, iV hydration on discharge bun 94, cr 2.5 Called and discussed with the patient's primary nephrology nurse, Dr. Elder. Plan for outpatient follow-up on 04/09 3.05 pm Renal ultrasound showed urinary retention - postvoid >500 cc with b/l hydro pt will do in/out self-catheterization consider repeating u/s in 1-2 weeks to re-eval hydronephrosis Hyperkalemia, hyponatremia with advanced renal failure Improved Stopped QUEENIE inhibitor Given Kayexalate treated with Hydration resolved Hypotension noted in the emergency room Well hold QUEENIE inhibitor Given IV fluids History of stroke Continue Plavix History of prior GI bleed Continue proton pump inhibitor Abnormal UA In the setting of neobladder for history of bladder cancer For now hold off on antibiotics Black stool With history of iron deficiency anemia on iron Occult blood was negative from stool Anemia might be secondary to renal failure as well noted some drop in hgb - likely due to hydration Continue proton pump inhibitor and iron Diabetes Was told he has prediabetes On no home medications Blood sugar is fairly controlled Diagnosis: Stroke: No - Discharge Data Discharge Date: 04/02/20 Discharge Disposition: Home, Self-Care 01 Condition: Good - Referral to Home Health Primary Care Physician: [facility] - Discharge Diagnosis/Problem(s) (1) Hyperkalemia SNOMED Code(s): 47799750 ICD Code: E87.5 - HYPERKALEMIA Status: Acute Current Visit: Yes (2) Diabetes SNOMED Code(s): 93479504 ICD Code: E11.9 - TYPE 2 DIABETES MELLITUS WITHOUT COMPLICATIONS Status: Acute Current Visit: Yes (3) Peripheral artery disease SNOMED Code(s): 310365787 ICD Code: I73.9 - PERIPHERAL VASCULAR DISEASE, UNSPECIFIED Status: Acute Current Visit: Yes (4) Hyponatremia SNOMED Code(s): 16532174 ICD Code: E87.1 - HYPO-OSMOLALITY AND HYPONATREMIA Status: Acute Current Visit: Yes (5) Hypotension SNOMED Code(s): 93703919 ICD Code: I95.9 - HYPOTENSION, UNSPECIFIED Status: Acute Current Visit: Yes Qualifiers: Hypotension type: unspecified hypotension type Qualified Code(s): I95.9 - Hypotension, unspecified (6) Renal failure SNOMED Code(s): 22297689 ICD Code: N19 - UNSPECIFIED KIDNEY FAILURE Status: Acute Current Visit: Yes Qualifiers: Renal failure chronicity: unspecified chronicity Qualified Code(s): N19 - Unspecified kidney failure (7) Acute on chronic kidney failure SNOMED Code(s): 063639417 ICD Code: N17.9 - ACUTE KIDNEY FAILURE, UNSPECIFIED; N18.9 - CHRONIC KIDNEY DISEASE, UNSPECIFIED Status: Acute Current Visit: No Qualifiers: Acute renal failure type: unspecified Chronic kidney disease stage: unspecified stage Qualified Code(s): N17.9 - Acute kidney failure, unspecified ; N18.9 - Chronic kidney disease, unspecified - Discharge Plan *PRESCRIPTION DRUG MONITORING PROGRAM REVIEWED*: Not Applicable *COPY OF PRESCRIPTION DRUG MONITORING REPORT IN PATIENT VINEET: Not Applicable Home Medications: Home Meds Clopidogrel [Plavix] 75 mg PO DAILY 08/12/14 [History] Multivitamin [Multi-Vitamin Daily] 1 tab PO DAILY 08/12/14 [History] Simvastatin [Zocor] 20 mg PO BEDTIME 08/12/14 [History] Zinc 50 mg PO DAILY 08/12/14 [History] Ferrous Sulfate [Iron] 325 mg PO DAILY 03/31/20 [History] Pantoprazole Sodium [Protonix] 40 mg PO DAILY 03/31/20 [History] Vit A/C/E AC/Znox/Cupric Oxide [Eye Vitamin-Minerals Tablet] 1 tab PO DAILY [History] Oxygen Therapy Mode: Room Air Patient Handouts: Hypotension, [id number], Clean Intermittent Catheterization , Male Referrals: Yue Elder MD [Physician] - - Discharge Summary/Plan Comment DC Time >30 min.: No - General Info Date of Service: 04/02/20 Functional Status: Reports: Tolerating Diet - Review of Systems General: Denies: Fever Pulmonary: Denies: Shortness of Breath Cardiovascular: Denies: Chest Pain, Edema Gastrointestinal: Denies: Abdominal Pain Genitourinary: Denies: Dysuria Neurological: Denies: Confusion - Patient Data Vitals - Most Recent: Last Vital Signs Temp 98.1 F 04/02/20 07:51 Pulse 64 04/02/20 07:51 Resp 18 04/02/20 07:51 BP 98/57 L 04/02/20 07:51 Pulse Ox 97 04/02/20 07:51 Orthostatic Blood Pressure [ 82/43 Standing] Orthostatic Blood Pressure [ 83/57 Sitting] Orthostatic Blood Pressure [ 91/45 Supine] Weight - Most Recent: 183 lb 3.2 oz I&O - Last 24 hours: Intake & Output 04/01/20 04/02/20 04/02/20 22:59 06:59 14:59 Intake Total 200 2184 400 Output Total 1000 1650 Balance -800 534 400 Lab Results - Last 24 hrs: Laboratory Results - last 24 hr 04/02/20 04/02/20 Range/Units 05:35 05:35 WBC 7.4 (5.0-10.0) 10^3/uL RBC 3.05 L (4.6-6.2) 10^6/uL Hgb 9.1 L (14.0-18.0) g/dL Hct 27.0 L (40.0-54.0) % MCV 88.5 (80-100) fL MCH 29.8 (27.0-34.0) pg MCHC 33.7 (33.0-35.0) g/dL Plt Count 258 (150-450) 10^3/uL Neut % (Auto) 54.8 (42.2-75.2) % Lymph % (Auto) 28.9 (20.5-50.1) % Beaver % (Auto) 10.3 H (2-8) % Eos % (Auto) 5.7 H (1.0-3.0) % Baso % (Auto) 0.3 (0.0-1.0) % Sodium 142 (136-145) mmol/L Potassium 4.3 (3.5-5.1) mmol/L Chloride 112 H (98-107) mmol/L Carbon Dioxide 17 L (21-32) mmol/L Anion Gap 17.3 H (7-13) mEq/L BUN 94 H D (7-18) mg/dL Creatinine 2.50 H D (0.70-1.30) mg/dL Est Cr Clr Drug Dosing .03 mL/min Estimated GFR (MDRD) 25 Glucose 77 (74-99) mg/dL Calcium 7.9 L (8.5-10.1) mg/dL DELROY Results - Last 24 hrs: Microbiology 03/31/20 20:10 Urine Culture - Preliminary Urine, Ileal Loop Med Orders - Current: Current Medications Acetaminophen (Tylenol) 650 mg PO Q4H PRN PRN Reason: Pain (Mild 1-3)/fever Hydrocodone Bitart/Acetaminophen ([place] 325-10 Mg) 1 tab PO Q4H PRN PRN Reason: Pain (moderate 4-6) Clopidogrel Bisulfate (Plavix) 75 mg PO DAILY [facility] Last Admin: 04/02/20 09:29 Dose: 75 mg Ferrous Sulfate (Ferrous Sulfate) 325 mg PO DAILY [facility] Last Admin: 04/02/20 09:29 Dose: 325 mg Heparin Sodium (Porcine) (Heparin Sodium) 5,000 units SUBCUT Q8HR [facility] Last Admin: 04/02/20 05:40 Dose: 5,000 units Sodium Chloride (Normal Saline) 1,000 mls @ 100 mls/hr IV ASDIRECTED [facility] Last Admin: 04/02/20 09:34 Dose: 100 mls/hr Multivitamins (Thera) 1 each PO DAILY [facility] Last Admin: 04/02/20 09:29 Dose: 1 each Ondansetron HCl (Zofran Odt) 4 mg PO Q6H PRN PRN Reason: nausea, able to take PO Ondansetron HCl (Zofran) 4 mg IVPUSH Q6H PRN PRN Reason: Nausea/Vomiting Pantoprazole Sodium (Protonix) 40 mg PO ACBREAKFAST [facility] Last Admin: 04/02/20 05:39 Dose: 40 mg Simvastatin (Zocor) 20 mg PO BEDTIME [facility] Last Admin: 04/01/20 21:03 Dose: 20 mg Temazepam (Restoril) 15 mg PO BEDTIME PRN PRN Reason: Sleep Discontinued Medications Sodium Chloride (Normal Saline) 1,000 mls @ 500 mls/hr IV .BOLUS ONE Stop: 03/31/20 16:14 Last Admin: 03/31/20 14:29 Dose: 500 mls/hr Insulin Human Lispro (Humalog) 0 unit SUBCUT ACBED [facility]; Protocol Last Admin: 04/01/20 11:25 Dose: Not Given Sodium Polystyrene Sulfonate (Kayexalate) 45 gm PO NOW ONE Stop: 03/31/20 18:01 Last Admin: 03/31/20 18:31 Dose: 45 gm - Exam General: Reports: Alert, Oriented Neck: Reports: Supple Lungs: Reports: Clear to Auscultation, Normal Respiratory Effort Cardiovascular: Reports: Regular Rate, Regular Rhythm GI/Abdominal Exam: Normal Bowel Sounds, Soft, Non-Tender Skin: Reports: Warm, Dry
[2020-04-02 11:34] VITALS: BP 122/60; PULSE 73
--- NOTE | 2020-04-02 12:33 | US ---
EXAMINATION: Retroperitoneal Ltd SEX: Male AGE: 74 years CLINICAL HISTORY: 74-year-old male with history of bladder resection for cancer and "Neobladder/condum catheter". Interpretation: Distended midline "bladder" in the pelvis (01 April) with full volume calculated at 604 mL. NOTE: Patient unable to void after initial exam. Right kidney measures 11 cm L x 5.3 cm W x 4.0 cm AP diameter. Mild right hydronephrosis (pyelectasis). *Left kidney measures 10.6 cm L x 6 cm W x 6 cm AP diameter with moderate left hydronephrosis (pyelectasis). Patient returned to department for second bladder (post catheterization) evaluation on 02 Apr 2020: Urinary bladder (neobladder) volume 566 mL on day 2 exam. Patient unable to void. Normal ureteral "jets".
== END 2020-04-02 11:50 | disposition home or self-care (01) | DRG 683 ==
LOC: DL.ED 14:25 → DL.MS 16:05 → UNDOADMOB 16:10 → OBSVTOIN 16:12 → INTOOBSV 16:12
PROVIDERS: ADMIT Internal Medicine; ATTEND Internal Medicine
DX: N17.9 Acute kidney failure, unspecified (principal); E87.1 Hypo-osmolality and hyponatremia; N28.9 Disorder of kidney and ureter, unspecified; H54.7 Unspecified visual loss; H91.90 Unspecified hearing loss, unspecified ear; H35.30 Unspecified macular degeneration; I10 Essential (primary) hypertension; N18.4 Chronic kidney disease, stage 4 (severe); E87.5 Hyperkalemia; Z86.010 Personal history of colon polyps; Z87.19 Personal history of other diseases of the digestive system; Z87.442 Personal history of urinary calculi; I95.9 Hypotension, unspecified; J44.9 Chronic obstructive pulmonary disease, unspecified; K21.9 Gastro-esophageal reflux disease without esophagitis; Z85.820 Personal history of malignant melanoma of skin; Z90.6 Acquired absence of other parts of urinary tract; Z90.79 Acquired absence of other genital organ(s); Z98.52 Vasectomy status; Z97.8 Presence of other specified devices; Z79.02 Long term (current) use of antithrombotics/antiplatelets; M19.90 Unspecified osteoarthritis, unspecified site; I12.9 Hypertensive chronic kidney disease with stage 1 through stage 4 chronic kidney disease, or unspecified chronic kidney disease; E11.22 Type 2 diabetes mellitus with diabetic chronic kidney disease; E11.51 Type 2 diabetes mellitus with diabetic peripheral angiopathy without gangrene; D50.9 Iron deficiency anemia, unspecified; D63.1 Anemia in chronic kidney disease; Z85.51 Personal history of malignant neoplasm of bladder; Z86.73 Personal history of transient ischemic attack (TIA), and cerebral infarction without residual deficits; Z79.899 Other long term (current) drug therapy
CPT/HCPCS: 36415; 76770; 76775; 80048; 80053; 81001; 82272; 82962; 85025; 87086; 87088; 87186; 96360; 99285-25; A9270-GY; J1644; J7030

== ENCOUNTER 2020-07-29 13:26 | Emergency (ER) | payer MEDICARE, OTHER ==
[2020-07-29 13:45] VITALS: BP 139/71; PULSE 81
--- NOTE | 2020-07-29 14:11 | EDM.PDOC ---
ED HPI GENERAL MEDICAL PROBLEM - General Chief Complaint: Upper Extremity Injury/Pain Stated Complaint: [id number] HURT RIGHT SHOULDER Time Seen by Provider: 07/29/20 14:11 Source of Information: Reports: Patient, RN, RN Notes Reviewed History Limitations: Reports: No Limitations - History of Present Illness INITIAL COMMENTS - FREE TEXT/NARRATIVE: Patient is a 74-year-old male who presents to ER ambulatory with right shoulder pain. He reports falling after tripping in a hole while golfing. States he landed on his right shoulder. Denies hitting his head or any other injury at th is time. Reports pain with range of motion and limited use of right arm. Reports pain similar to previous left rotator cuff tear. Onset: Today Duration: Getting Worse Location: Reports: Upper Extremity, Right Quality: Reports: Ache Severity: Moderate Improves with: Reports: None Worsens with: Reports: None Associated Symptoms: Reports: No Other Symptoms Right Shoulder Pain Score (Numeric/FACES): 5 - Related Data Allergies Allergy/AdvReac Type Severity Reaction Status Date / Time No Known Allergies Allergy Verified 07/29/20 13:43 Home Meds: Home Meds Clopidogrel [Plavix] 75 mg PO DAILY 08/12/14 [History] Multivitamin [Multi-Vitamin Daily] 1 tab PO DAILY 08/12/14 [History] Simvastatin [Zocor] 20 mg PO BEDTIME 08/12/14 [History] Zinc 50 mg PO DAILY 08/12/14 [History] Ferrous Sulfate [Iron] 325 mg PO DAILY 03/31/20 [History] Pantoprazole Sodium [Protonix] 40 mg PO DAILY 03/31/20 [History] Vit A/C/E AC/Znox/Cupric Oxide [Eye Vitamin-Minerals Tablet] 1 tab PO DAILY 03/31/20 [History] Past Medical History HEENT History: Reports: Impaired Vision, Macular Degeneration Other HEENT History: wears glasses. [facility] Cardiovascular History: Reports: Hypertension Respiratory History: Reports: COPD Gastrointestinal History: Reports: Colon Polyp, GERD Other Gastrointestinal History: duodenal ulcer Genitourinary History: Reports: Acute Renal Failure, Hydronephrosis, Other (See Below) Other Genitourinary History: kidneys under stress due to dehydration Musculoskeletal History: Reports: Osteoarthritis Neurological History: Reports: CVA Psychiatric History: Reports: None Endocrine/Metabolic History: Reports: Other (See Below) Other Endocrine/Metabolic History: pre diabetic Hematologic History: Reports: Blood Transfusion(s) Immunologic History: Reports: None Oncologic (Cancer) History: Reports: Bladder, Malignant Melanoma Dermatologic History: Reports: Melanoma, Other (See Below) Other Dermatologic History: removed melanoma growth - Infectious Disease History Infectious Disease History: Reports: Chicken Pox, Measles Other Infectious Disease History: E-coli history - Past Surgical History Head Surgeries/Procedures: Reports: None HEENT Surgical History: Reports: Adenoidectomy, Tonsillectomy Cardiovascular Surgical History: Reports: None GI Surgical History: Reports: Colonoscopy, EGD, Polypectomy Male Surgical History: Reports: Cystectomy, Prostatectomy, Vasectomy, Other (See Below) Other Male Surgeries/Procedures: Pt states bladder replacement. Has external catheter at HS. Bladder cancer history Endocrine Surgical History: Reports: None Neurological Surgical History: Reports: None Musculoskeletal Surgical History: Reports: Shoulder Surgery Other Musculoskeletal Surgeries/Procedures:: left shoulder tendon repair Dermatological Surgical History: Reports: Skin Biopsy Social & Family History - Family History Family Medical History: Noncontributory - Tobacco Use Smoking Status *Q: Current Every Day Smoker Years of Tobacco use: 50 Packs/Tins Daily: 1 - Caffeine Use Caffeine Use: Reports: Soda Caffeine Use Comment: 6 soda daily - Recreational Drug Use Recreational Drug Use: No Review of Systems - Review of Systems Review Of Systems: Comprehensive ROS is negative, except as noted in HPI. ED EXAM, GENERAL - Physical Exam Exam: See Below Exam Limited By: No Limitations General Appearance: Alert, WD/WN, No Apparent Distress Eye Exam: Bilateral Eye: EOMI, Normal Inspection, PERRL Ears: Normal External Exam, Normal Canal, Hearing Grossly Normal, Normal TMs Nose: Normal Inspection, Normal Mucosa, No Blood Throat/Mouth: Normal Inspection, Normal Lips, Normal Teeth, Normal Gums, Normal Oropharynx, Normal Voice, No Airway Compromise Head: Atraumatic, Normocephalic Neck: Normal Inspection, Supple, Non-Tender, Full Range of Motion Respiratory/Chest: No Respiratory Distress, Lungs Clear, Normal Breath Sounds, No Accessory Muscle Use, Chest Non-Tender Cardiovascular: Normal Peripheral Pulses, Regular Rate, Rhythm, No Edema, No Gallop, No JVD, No Murmur, No Rub GI/Abdominal: Normal Bowel Sounds, Soft, Non-Tender, No Organomegaly, No Distention, No Abnormal Bruit, No Mass (Male) Exam: Deferred Rectal (Males) Exam: Deferred Back Exam: Normal Inspection, Full Range of Motion, NT Extremities: Other (right arm/shoulder with limited range of motion. Tender upon palpation. ) Neurological: Alert, Oriented, CN II-XII Intact, Normal Cognition, Normal Gait, Normal Reflexes, No Motor/Sensory Deficits Psychiatric: Normal Affect, Normal Mood Lymphatic: No Adenopathy Course - Vital Signs Last Recorded V/S: Last Vital Signs Temp 97.8 F 07/29/20 13:44 Pulse 81 07/29/20 13:44 Resp 16 07/29/20 13:44 BP 139/71 07/29/20 13:44 Pulse Ox 100 07/29/20 13:44 Departure - Departure Time of Disposition: 15:01 Disposition: Home, Self-Care 01 Condition: Fair Clinical Impression: Right shoulder injury Qualifiers: Encounter type: initial encounter Qualified Code(s): S49.91XA - Unspecified injury of right shoulder and upper arm, initial encounter - Discharge Information *PRESCRIPTION DRUG MONITORING PROGRAM REVIEWED*: No *COPY OF PRESCRIPTION DRUG MONITORING REPORT IN PATIENT VINEET: No Instructions: How To Use a Sling, [id number], Shoulder Pain, [id number] Forms: ED Department Discharge, ED Return to Work/School Form Additional Instructions: Wear sling to the right arm until see by orthopedics May use ice to the area as tolerated May use Tylenol and/or Ibuprofen as directed for pain Follow up with orthopedics Sepsis Event Note (ED) - Evaluation Sepsis Screening Result: No Definite Risk - Focused Exam Vital Signs: Vital Signs Temp Pulse Resp BP Pulse Ox 07/29/20 13:44 97.8 F 81 16 139/71 100
--- NOTE | 2020-07-29 15:00 | CR ---
EXAMINATION: Shoulder Comp Rt SEX: Male AGE: 74 years CLINICAL HISTORY: 74-year-old male injured right shoulder (fall). Interpretation (3 views): *No fracture or acute glenohumeral dislocation. Hill-Sachs notch like deformity lateral aspect of the humeral head suggests previous dislocation (no current signs of glenohumeral dislocation). No juxta articular rotator cuff tendon calcifications. No foreign bodies other than gown snaps. Slight elevation distal end right clavicle with reactive arthritic sclerosis ipsilateral acromioclavicular (AC) joint most characteristic of old separation. Point tenderness? Underlying ribs upper right chest unremarkable. Right lung apex clear. No pneumothorax.
== END 2020-07-29 15:22 | disposition home or self-care (01) ==
LOC: DL.ED 13:26
DX: S49.91XA Unspecified injury of right shoulder and upper arm, initial encounter (principal); I10 Essential (primary) hypertension; J44.9 Chronic obstructive pulmonary disease, unspecified; K21.9 Gastro-esophageal reflux disease without esophagitis; F17.210 Nicotine dependence, cigarettes, uncomplicated; Z86.73 Personal history of transient ischemic attack (TIA), and cerebral infarction without residual deficits; Z79.02 Long term (current) use of antithrombotics/antiplatelets; Z79.899 Other long term (current) drug therapy; W01.0XXA Fall on same level from slipping, tripping and stumbling without subsequent striking against object, initial encounter
CPT/HCPCS: 73030-RT; 99282; 99283-25

== ENCOUNTER 2020-11-09 17:02 | Emergency (ER) | payer MEDICARE, OTHER ==
[2020-11-09 17:30] VITALS: BP 128/59; PULSE 87
--- NOTE | 2020-11-09 17:46 | EDM.PDOC ---
ED HPI GENERAL MEDICAL PROBLEM - General Chief Complaint: Wound Recheck Stated Complaint: BLEEDING, RIGHT SHOULDER REPLACEMENT, 11/02/20 Time Seen by Provider: 11/09/20 17:31 Source of Information: Reports: Patient, RN, RN Notes Reviewed History Limitations: Reports: No Limitations - History of Present Illness INITIAL COMMENTS - FREE TEXT/NARRATIVE: Pt presents to ER on POD #7 s/p right shoulder replacement by Dr. Bass, with c/o blood tinged drainage that has saturated his waterproof postop dressing. Pt denies pain any more than expected postoperatively. Pt denies active bleeding. Onset: Gradual Duration: Day(s): (1-2) Location: Reports: Upper Extremity, Right Quality: Reports: Ache Severity: Moderate Improves with: Reports: None Worsens with: Reports: None Associated Symptoms: Reports: No Other Symptoms - Related Data Allergies Allergy/AdvReac Type Severity Reaction Status Date / Time No Known Allergies Allergy Verified 11/09/20 17:25 Home Meds: Home Meds Clopidogrel [Plavix] 75 mg PO DAILY 08/12/14 [History] Multivitamin [Multi-Vitamin Daily] 1 tab PO DAILY 08/12/14 [History] Simvastatin [Zocor] 20 mg PO BEDTIME 08/12/14 [History] Zinc 50 mg PO DAILY 08/12/14 [History] Ferrous Sulfate [Iron] 325 mg PO DAILY 03/31/20 [History] Pantoprazole Sodium [Protonix] 40 mg PO DAILY 03/31/20 [History] Vit A/C/E AC/Znox/Cupric Oxide [Eye Vitamin-Minerals Tablet] 1 tab PO DAILY 03/31/20 [History] Past Medical History HEENT History: Reports: Impaired Vision, Macular Degeneration Other HEENT History: wears glasses. [facility] Cardiovascular History: Reports: Hypertension Respiratory History: Reports: COPD Gastrointestinal History: Reports: Colon Polyp, GERD Other Gastrointestinal History: duodenal ulcer Genitourinary History: Reports: Acute Renal Failure, Hydronephrosis, Other (See Below) Other Genitourinary History: kidneys under stress due to dehydration Musculoskeletal History: Reports: Osteoarthritis Neurological History: Reports: CVA Psychiatric History: Reports: None Endocrine/Metabolic History: Reports: Other (See Below) Other Endocrine/Metabolic History: pre diabetic Hematologic History: Reports: Blood Transfusion(s) Immunologic History: Reports: None Oncologic (Cancer) History: Reports: Bladder, Malignant Melanoma Dermatologic History: Reports: Melanoma, Other (See Below) Other Dermatologic History: removed melanoma growth - Infectious Disease History Infectious Disease History: Reports: Chicken Pox, Measles Other Infectious Disease History: E-coli history - Past Surgical History Head Surgeries/Procedures: Reports: None HEENT Surgical History: Reports: Adenoidectomy, Tonsillectomy Cardiovascular Surgical History: Reports: None GI Surgical History: Reports: Colonoscopy, EGD, Polypectomy Male Surgical History: Reports: Cystectomy, Prostatectomy, Vasectomy, Other (See Below) Other Male Surgeries/Procedures: Pt states bladder replacement. Has external catheter at HS. Bladder cancer history Endocrine Surgical History: Reports: None Neurological Surgical History: Reports: None Musculoskeletal Surgical History: Reports: Shoulder Surgery Other Musculoskeletal Surgeries/Procedures:: left shoulder tendon repair Dermatological Surgical History: Reports: Skin Biopsy Social & Family History - Family History Family Medical History: No Pertinent Family History - Caffeine Use Caffeine Use: Reports: Soda Caffeine Use Comment: 6 soda daily - Living Situation & Occupation Living situation: Reports: with Family Occupation: Employed ED ROS GENERAL - Review of Systems Review Of Systems: Comprehensive ROS is negative, except as noted in HPI. ED EXAM, SKIN/RASH Exam: See Below Exam Limited By: No Limitations General Appearance: Alert, WD/WN, No Apparent Distress Head: Atraumatic, Normocephalic Neck: Normal Inspection Respiratory/Chest: No Respiratory Distress Cardiovascular: Normal Peripheral Pulses Extremities: Normal Capillary Refill, Other (Rt shoulder incision is intact, no erythema or signs of infection, the original surgical dressing was saturated and coming loose. The inferior incision has serosanginous drainage.) Neurological: Alert, Oriented Psychiatric: Normal Mood Course - Vital Signs Last Recorded V/S: Last Vital Signs Temp 98.3 F 11/09/20 17:29 Pulse 87 11/09/20 17:29 Resp 16 11/09/20 17:29 BP 128/59 L 11/09/20 17:29 Pulse Ox 99 11/09/20 17:29 - Re-Assessments/Exams Free Text/Narrative Re-Assessment/Exam: 11/09/20 17:50 Dressing was replaced by RN. Departure - Departure Time of Disposition: 17:51 Disposition: Home, Self-Care 01 Condition: Good Clinical Impression: Drainage from surgical wound - Discharge Information *PRESCRIPTION DRUG MONITORING PROGRAM REVIEWED*: Not Applicable *COPY OF PRESCRIPTION DRUG MONITORING REPORT IN PATIENT VINEET: Not Applicable Instructions: How to Change Your Wound Dressing, [id number]-Aodi Forms: ED Department Discharge Additional Instructions: Call [facility] tomorrow to let your surgeon about the drainage and the need for dressing change. Sepsis Event Note (ED) - Evaluation Sepsis Screening Result: No Definite Risk - Focused Exam Vital Signs: Vital Signs Temp Pulse Resp BP Pulse Ox 11/09/20 17:29 98.3 F 87 16 128/59 L 99
== END 2020-11-09 18:03 | disposition home or self-care (01) ==
LOC: DL.ED 17:02
DX: T81.89XA Other complications of procedures, not elsewhere classified, initial encounter (principal); I10 Essential (primary) hypertension; K21.9 Gastro-esophageal reflux disease without esophagitis; J44.9 Chronic obstructive pulmonary disease, unspecified; Z86.73 Personal history of transient ischemic attack (TIA), and cerebral infarction without residual deficits; Z79.02 Long term (current) use of antithrombotics/antiplatelets; Z79.899 Other long term (current) drug therapy
CPT/HCPCS: 99282; 99283

== ENCOUNTER 2020-11-19 08:07 | Emergency (ER) | payer OTHER, MEDICARE ==
[2020-11-19 08:41] VITALS: BP 128/62; PULSE 69
--- NOTE | 2020-11-19 08:54 | CR ---
PROCEDURE INFORMATION: Exam: XR Left Hip with Pelvis when Performed Exam date and time: 11/19/2020 8:19 AM Age: 74 years old Clinical indication: Injury or trauma; Fall; Blunt trauma (contusions or hematomas); Left; Hip; Injury date: 11/19/2020; Additional info: Fall onto left hip; Trauma code TECHNIQUE: Imaging protocol: XR Left hip with pelvis when performed. Views: 2 or 3 views. COMPARISON: No relevant prior studies available. FINDINGS: Tubes, catheters and devices: Bilateral pelvic surgical clips from a prior lymph node dissection. Bones/joints: There is an impacted and angulated left femoral intertrochanteric fracture. Bilateral hip joint degeneration. No dislocation. The symphysis pubis and sacroiliac joints are not diastatic. Soft tissues: No acute soft tissue abnormality. IMPRESSION: Left femoral intertrochanteric fracture.
--- NOTE | 2020-11-19 08:57 | EDM.PDOC ---
"ED [facility] GENERAL MEDICAL PROBLEM - General Chief Complaint: Trauma Time Seen by Provider: 11/19/20 08:09 Source of Information: Reports: Patient, EMS, EMS Notes Reviewed, RN, RN Notes Reviewed History Limitations: Reports: No Limitations - History of Present Illness INITIAL COMMENTS - FREE TEXT/NARRATIVE: Patient presents to the ED via EMS with complaints of fall onto his left side while exiting his truck. He does attest to taking Plavix daily for a history of stroke. He vision changes, chest pain, palpitations, or shortness of breath prior to the fall. He denies hitting his head or LOC during the event. He denies pain to his chest, abdomen, or pelvis; he does attest to pain in his left hip. Deformity noted to left lower extremity as he is unable to fully straighten the left leg. The patient does have a healing scar to the anterior right shoulder. The patient states he underwent a right shoulder replacement on November [address] Do at [facility] in [place]. He notes this incision did start draining dark fluid this morning, so he applied a dressing. The patient denies tobacco, alcohol, or recreational drug use. Trauma Notes: As above in HPI Arrival Time: 907 C-Collar Status: Not applied by EMS; Not applied upon arrival to facility, C- Spine cleared during primary assessment by specifications writer at 0810 Spinal Board/Immobilization Status: Not applied by EMS; Not applied upon arrival to facility GCS on Arrival: 15 Primary Trauma Survey ( 0815 hrs) Airway: Patent nasal and oral airways. Breathing: Spontaneous respirations with clear bilateral breath sounds. Circulation: Heart rate and rhythm regular, intact distal pulses to all four extremities, no cyanosis. Deformity/Disability: Deformity noted to left lower extremity; patient states pain in left hip. No active bleeding. No long bone deformities. No neurological deficits. Abdomen benign to exam. Exposure: Skin warm and dry. Left Hip Pain Score (Numeric/FACES): 5 - Related Data Allergies Allergy/AdvReac Type Severity Reaction Status Date / Time No Known Allergies Allergy Verified 11/19/20 08:41 Home Meds: Home Meds Clopidogrel [Plavix] 75 mg PO DAILY 08/12/14 [History] Multivitamin [Multi-Vitamin Daily] 1 tab PO DAILY 08/12/14 [History] Simvastatin [Zocor] 20 mg PO BEDTIME 08/12/14 [History] Zinc 50 mg PO DAILY 08/12/14 [History] Ferrous Sulfate [Iron] 325 mg PO DAILY 03/31/20 [History] Pantoprazole Sodium [Protonix] 40 mg PO DAILY 03/31/20 [History] Vit A/C/E AC/Znox/Cupric Oxide [Eye Vitamin-Minerals Tablet] 1 tab PO DAILY 03/31/20 [History] Past Medical History HEENT History: Reports: Impaired Vision, Macular Degeneration Other HEENT History: wears glasses. [id number] Cardiovascular History: Reports: Hypertension Respiratory History: Reports: COPD Gastrointestinal History: Reports: Colon Polyp, GERD Other Gastrointestinal History: duodenal ulcer Genitourinary History: Reports: Acute Renal Failure, Hydronephrosis, Other (See Below) Other Genitourinary History: kidneys under stress due to dehydration Musculoskeletal History: Reports: Osteoarthritis Neurological History: Reports: CVA Psychiatric History: Reports: None Endocrine/Metabolic History: Reports: Other (See Below) Other Endocrine/Metabolic History: pre diabetic Hematologic History: Reports: Blood Transfusion(s) Immunologic History: Reports: None Oncologic (Cancer) History: Reports: Bladder, Malignant Melanoma Dermatologic History: Reports: Melanoma, Other (See Below) Other Dermatologic History: removed melanoma growth - Infectious Disease History Infectious Disease History: Reports: Chicken Pox, Measles Other Infectious Disease History: E-coli history - Past Surgical History Head Surgeries/Procedures: Reports: None HEENT Surgical History: Reports: Adenoidectomy, Tonsillectomy Cardiovascular Surgical History: Reports: None GI Surgical History: Reports: Colonoscopy, EGD, Polypectomy Male Surgical History: Reports: Cystectomy, Prostatectomy, Vasectomy, Other (See Below) Other Male Surgeries/Procedures: Pt states bladder replacement. Has external catheter at . Bladder cancer history Endocrine Surgical History: Reports: None Neurological Surgical History: Reports: None Musculoskeletal Surgical History: Reports: Shoulder Surgery Other Musculoskeletal Surgeries/Procedures:: left shoulder tendon repair Dermatological Surgical History: Reports: Skin Biopsy Social & Family History - Family History Family Medical History: No Pertinent Family History - Caffeine Use Caffeine Use: Reports: Soda Caffeine Use Comment: 6 soda daily - Living Situation & Occupation Living situation: Reports: with Family Occupation: Employed Review of Systems - Review of Systems Review Of Systems: Comprehensive ROS is negative, except as noted in HPI. ED EXAM, GENERAL - Physical Exam Exam: See Below Free Text/Narrative:: Secondary Trauma Survey as follows: Exam Limited By: No Limitations General Appearance: Alert, No Apparent Distress Eye Exam: Bilateral Eye: EOMI, Normal Inspection, PERRL (3mm) Ears: Normal External Exam, Normal Canal, Hearing Grossly Normal, Normal TMs Nose: Normal Inspection. No: Nasal Tenderness, Nasal Swelling, Nasal Drainage Throat/Mouth: Normal Inspection, Normal Voice, No Airway Compromise Head: Atraumatic, Normocephalic Neck: Normal Inspection, Supple, Non-Tender, Full Range of Motion, Other (CSpine cleared at 0810 by physical exam; C-Collar not placed; Spinal board not placed). No: Lymphadenopathy (L), Tender Lateral, Tender Midline Respiratory/Chest: No Respiratory Distress, Lungs Clear, Normal Breath Sounds, No Accessory Muscle Use, Chest Non-Tender Cardiovascular: Normal Peripheral Pulses, Regular Rate, Rhythm, No Edema, No Gallop, No JVD, No Murmur, No Rub Peripheral Pulses: 1+: Posterior Tibial (L), Posterior Tibial (R), 2+: Radial (L), Radial (R), Dorsalis Pedis (L), Dorsalis Pedis (R) GI/Abdominal: Normal Bowel Sounds, Soft, Non-Tender, No Distention, No Mass, Pelvis Stable (Male) Exam: Deferred Rectal (Males) Exam: Deferred Back Exam: Normal Inspection, Full Range of Motion. No: CVA Tenderness (L), CVA Tenderness (R) Extremities: Normal Capillary Refill, Leg Pain (To left hip), Limited Range of Motion (To left hip). No: Mottled, Pallor, Redness Neurological: Alert, Oriented, CN II-XII Intact, Normal Cognition, No Motor/Sensory Deficits, Sensory/Motor Deficit. No: Abnormal Gait (Patient has not ambulated since arrival to facility) Psychiatric: Normal Affect Skin Exam: Warm, Dry, Normal Color, No Rash, Wound/Incision (Healing incision to right anterior ). No: Ecchymosis, Erythema, Mottled, Pallor, Petechiae Course - Vital Signs Last Recorded V/S: Last Vital Signs Temp 98.9 F 11/19/20 08:37 Pulse 69 11/19/20 08:37 Resp 18 11/19/20 08:37 BP 128/62 11/19/20 08:37 Pulse Ox 100 11/19/20 08:37 - Orders/Labs/Meds Orders: Active Orders 24 hr Category Date Time Status EKG Documentation Completion [RC] STAT Care 11/19/20 08:19 Active DRUG SCREEN URINE BIORAD [URCHEM] Urgent Lab 11/19/20 08:19 Ordered UA RFX DELROY AND CULT IF INDIC [URIN] Stat Lab 11/19/20 08:19 Ordered Labs: Laboratory Tests 11/19/20 11/19/20 11/19/20 Range/Units 08:19 08:19 08:19 WBC 13.5 H (5.0-10.0) 10^3/uL RBC 3.95 L (4.6-6.2) 10^6/uL Hgb 11.8 L D (14.0-18.0) g/dL Hct 36.0 L (40.0-54.0) % MCV 91.1 (80-100) fL MCH 29.9 (27.0-34.0) pg MCHC 32.8 L (33.0-35.0) g/dL Plt Count 351 D (150-450) 10^3/uL Neut % (Auto) 76.2 H (42.2-75.2) % Lymph % (Auto) 13.6 L (20.5-50.1) % [place] % (Auto) 7.6 (2-8) % Eos % (Auto) 2.2 (1.0-3.0) % Baso % (Auto) 0.4 (0.0-1.0) % PT 9.8 (9.0-12.0) SEC INR 1.0 (0.9-1.2) APTT 22.3 (22.0-34.0) SEC Sodium 137 (136-145) mmol/L Potassium 4.7 (3.5-5.1) mmol/L Chloride 102 (98-107) mmol/L Carbon Dioxide 21 (21-32) mmol/L Anion Gap 18.7 H (7-13) mEq/L BUN 28 H D (7-18) mg/dL Creatinine 1.51 H (0.70-1.30) mg/dL Est Cr Clr Drug Dosing 44.99 mL/min Estimated GFR (MDRD) 46 BUN/Creatinine Ratio 18.5 (No establ ref range) Glucose 142 H (74-99) mg/dL Calcium 8.8 (8.5-10.1) mg/dL Magnesium 2.0 (1.8-2.4) mg/dL Total Bilirubin 0.5 (0.2-1.0) mg/dL AST 33 (15-37) U/L ALT 44 (16-63) U/L Alkaline Phosphatase 113 (46-116) U/L Troponin I < 0.017 (0.000-0.056) ng/mL Total Protein 7.5 (6.4-8.2) g/dL Albumin 3.3 L (3.4-5.0) g/dL Globulin 4.2 Albumin/Globulin Ratio 0.79 Ethyl Alcohol < 3 (0) mg/dL SARS CoV-2 RNA Rapid LUIS (NEGATIVE) 11/19/20 Range/Units 08:56 WBC (5.0-10.0) 10^3/uL RBC (4.6-6.2) 10^6/uL Hgb (14.0-18.0) g/dL Hct (40.0-54.0) % MCV (80-100) fL MCH (27.0-34.0) pg MCHC (33.0-35.0) g/dL Plt Count (150-450) 10^3/uL Neut % (Auto) (42.2-75.2) % Lymph % (Auto) (20.5-50.1) % [place] % (Auto) (2-8) % Eos % (Auto) (1.0-3.0) % Baso % (Auto) (0.0-1.0) % PT (9.0-12.0) SEC INR (0.9-1.2) APTT (22.0-34.0) SEC Sodium (136-145) mmol/L Potassium (3.5-5.1) mmol/L Chloride (98-107) mmol/L Carbon Dioxide (21-32) mmol/L Anion Gap (7-13) mEq/L BUN (7-18) mg/dL Creatinine (0.70-1.30) mg/dL Est Cr Clr Drug Dosing mL/min Estimated GFR (MDRD) BUN/Creatinine Ratio (No establ ref range) Glucose (74-99) mg/dL Calcium (8.5-10.1) mg/dL Magnesium (1.8-2.4) mg/dL Total Bilirubin (0.2-1.0) mg/dL AST (15-37) U/L ALT (16-63) U/L Alkaline Phosphatase (46-116) U/L Troponin I (0.000-0.056) ng/mL Total Protein (6.4-8.2) g/dL Albumin (3.4-5.0) g/dL Globulin Albumin/Globulin Ratio Ethyl Alcohol (0) mg/dL SARS CoV-2 RNA Rapid LUIS Negative (NEGATIVE) Meds: Medications Discontinued Medications Generic Name Dose Route Start Last Admin Trade Name Ruddyq PRN Reason Stop Dose Admin Fentanyl 50 mcg 11/19/20 08:58 11/19/20 09:15 Sublimaze IVPUSH 11/19/20 08:59 50 mcg ONETIME ONE Administration - Radiology Interpretation Free Text/Narrative:: [facility] Final Radiology Report Call: [phone] assistance Online chat: [email or web address] Name: REGI MORRIS Age: 74Years M Date: 11/19/2020 SSN: -- : [id number] Study: CR HIP MIN 2V OR 3V W PELVIS LT Requesting Physician: Susi Sargent Images: 2 Addl Studies: Provided Clinical History: Fall onto left hip; Trauma code Contrast: Contrast Medium: Contrast Amount: Contrast Method: CONFIDENTIALITY STATEMENT This report is intended only for use by the referring physician, and only in ac cordance with law. If you received this in error, call [phone]. Page 1 of 1 PROCEDURE INFORMATION: Exam: XR Left Hip with Pelvis when Performed Exam date and time: 11/19/2020 8:19 AM Age: 74 years old Clinical indication: Injury or trauma; Fall; Blunt trauma (contusions or hematomas); Left; Hip; Injury date: 11/19/2020; Additional info: Fall onto left hip; Trauma code TECHNIQUE: Imaging protocol: XR Left hip with pelvis when performed. Views: 2 or 3 views. COMPARISON: No relevant prior studies available. FINDINGS: Tubes, catheters and devices: Bilateral pelvic surgical clips from a prior lymph node dissection. Bones/joints: There is an impacted and angulated left femoral intertrochanteric fracture. Bilateral hip joint degeneration. No dislocation. The symphysis pubis and sacroiliac joints are not diastatic. Soft tissues: No acute soft tissue abnormality. IMPRESSION: Left femoral intertrochanteric fracture. Thank you for allowing us to participate in the care of your patient. Dictated and Authenticated by: Amando Mackey MD 11/19/2020 8:53 AM Central Time ([place] & [place]) [facility] Final Radiology Report Call: [phone] assistance Online chat: [email or web address] Name: REGI MORRIS Age: 74Years M Date: 11/19/2020 SSN: -- : [id number] Study: CT HEAD WO CONT Requesting Physician: Susi Sargent Images: 150 Addl Studies: Provided Clinical History: Trauma; Fell onto left hip. Patient on plavix Contrast: Without Contrast Medium: Contrast Amount: Contrast Method: Page 1 of 2 PROCEDURE INFORMATION: Exam: CT Head Without Contrast Exam date and time: 11/19/2020 9:04 AM Age: 74 years old Clinical indication: Injury or trauma; Fall; Blunt trauma (contusions or hematomas); Without loss of consciousness; Injury date: 11/19/20; Additional info: Trauma; Fell onto left hip. Patient on plavix TECHNIQUE: Imaging protocol: Computed tomography of the head without contrast. Radiation optimization: All CT scans at this facility use at least one of these dose optimization techniques: automated exposure control; mA and/or kV adjustment per patient size (includes targeted exams where dose is matched to clinical indication); or iterative reconstruction. COMPARISON: No relevant prior studies available. FINDINGS: Brain: No acute brain parenchymal abnormality. No intracranial hemorrhage. No extraaxial fluid collections. Cerebral ventricles: No hydrocephalus. Bones/joints: No calvarial fracture. Paranasal sinuses: Multifocal mucoperiosteal thickening. Mastoid air cells: The visualized mastoid air cells are aerated. Soft tissues: No acute soft tissue abnormality. IMPRESSION: No intracranial injury or calvarial fracture. Thank you for allowing us to participate in the care of your patient. REGI MORRIS | Final Radiology Report CONFIDENTIALITY STATEMENT This report is intended only for use by the referring physician, and only in accordance with law. If you received this in error, call [phone]. Page 2 of 2 Dictated and Authenticated by: Amando Mackey MD 11/19/2020 9:17 AM Central Time ([place] & [place]) - Re-Assessments/Exams Free Text/Narrative Re-Assessment/Exam: 11/19/20 Left hip x-ray reveals femoral intertrochanteric fracture. Case discussed with Dr. Gray in orthopedic surgery at [facility] in [place] who agreed to accept the patient for transfer through the ED. One Call notified ED provider, Dr. Griffin, of patient's case who agreed to accept the patient for transfer. Dr. Griffin did request a CT of head at this facility prior to transport. Plan of care discussed patient and his , bother verbalized understanding and agreement. Will complete CT and send patient via ground. GCS at one hour: 15 COVID test negative GCS at discharge: 15 Departure - Departure Time of Disposition: 09:36 Disposition: DC/Tfer to Acute Hospital 02 Condition: Good Clinical Impression: Hx of group home use of blood thinners, Left hip pain Closed intertrochanteric fracture of femur Qualifiers: Encounter type: initial encounter Fracture alignment: nondisplaced Laterality: left Qualified Code(s): S72.145A - Nondisplaced intertrochanteric fracture of left femur, initial encounter for closed fracture Fall Qualifiers: Encounter type: initial encounter Qualified Code(s): W19.XXXA - Unspecified fall, initial encounter - Discharge Information Forms: ED Department Discharge, Interfacility Transfer JETT Sepsis Event Note (ED) - Evaluation Sepsis Screening Result: No Definite Risk - Focused Exam Vital Signs: Vital Signs Temp Pulse Resp BP Pulse Ox 11/19/20 08:37 98.9 F 69 18 128/62 100 - My Orders Last 24 Hours: My Active Orders 11/19/20 08:19 EKG Documentation Completion [RC] STAT DRUG SCREEN URINE BIORAD [URCHEM] Urgent UA RFX DELROY AND CULT IF INDIC [URIN] Stat - Assessment/Plan Last 24 Hours: My Active Orders 11/19/20 08:19 EKG Documentation Completion [RC] STAT DRUG SCREEN URINE BIORAD [URCHEM] Urgent UA RFX DELROY AND CULT IF INDIC [URIN] Stat"
[2020-11-19] MEDS ORDERED: fentaNYL 100 MCG/2 ML SDV IVPUSH ONE (08:58)
[2020-11-19 09:02] LABS: ANION GAP 18.7 mEq/L (7-13); CHLORIDE,CL 102 mmol/L (98-107); SODIUM,NA 137 mmol/L (136-145)
[2020-11-19 09:14] LABS: PTT,PARTIAL THROMBOPLSTIN TIME 22.3 SEC (22.0-34.0)
--- NOTE | 2020-11-19 09:17 | CT ---
PROCEDURE INFORMATION: Exam: CT Head Without Contrast Exam date and time: 11/19/2020 9:04 AM Age: 74 years old Clinical indication: Injury or trauma; Fall; Blunt trauma (contusions or hematomas); Without loss of consciousness; Injury date: 11/19/20; Additional info: Trauma; Fell onto left hip. Patient on plavix TECHNIQUE: Imaging protocol: Computed tomography of the head without contrast. Radiation optimization: All CT scans at this facility use at least one of these dose optimization techniques: automated exposure control; mA and/or kV adjustment per patient size (includes targeted exams where dose is matched to clinical indication); or iterative reconstruction. COMPARISON: No relevant prior studies available. FINDINGS: Brain: No acute brain parenchymal abnormality. No intracranial hemorrhage. No extraaxial fluid collections. Cerebral ventricles: No hydrocephalus. Bones/joints: No calvarial fracture. Paranasal sinuses: Multifocal mucoperiosteal thickening. Mastoid air cells: The visualized mastoid air cells are aerated. Soft tissues: No acute soft tissue abnormality. IMPRESSION: No intracranial injury or calvarial fracture.
== END 2020-11-19 09:45 ==
LOC: DL.ED 08:07
DX: S72.145A Nondisplaced intertrochanteric fracture of left femur, initial encounter for closed fracture (principal); K21.9 Gastro-esophageal reflux disease without esophagitis; I10 Essential (primary) hypertension; J44.9 Chronic obstructive pulmonary disease, unspecified; Z79.01 Long term (current) use of anticoagulants; Z20.822 Contact with and (suspected) exposure to COVID-19; Z79.02 Long term (current) use of antithrombotics/antiplatelets; Z86.72 Personal history of thrombophlebitis; Z79.899 Other long term (current) drug therapy; W19.XXXA Unspecified fall, initial encounter; Y99.0 Civilian activity done for income or pay
CPT/HCPCS: 36415; 70450; 73502; 80053; 80307; 83735; 84484; 85025; 85610; 85730; 87635; 93005; 96374; 99285; J3010; 99284; U0002

== ENCOUNTER 2020-11-22 12:26 | Inpatient (IN) | payer MEDICARE, OTHER ==
[2020-11-23] MEDS ORDERED: Acetaminophen/HYDROcodone 325-10 MG Tab PO PRN (13:42)
[2020-11-23] MEDS ORDERED: Ondansetron 4 MG Tab.DIS PO PRN (13:42)
[2020-11-23] MEDS ORDERED: Docusate Sodium 100 MG Cap PO PRN (13:42)
[2020-11-23] MEDS ORDERED: oxyCODONE 5 MG Tab PO PRN (13:44)
[2020-11-23] MEDS ORDERED: Heparin Sodium 5,000 Units/ML Vial SUBCUT SCH (14:00)
--- NOTE | 2020-11-23 14:03 | PCM.HP ---
H&P History of Present Illness - General Date of Service: 11/23/20 Admit Problem/Dx: Admission Diagnosis/Problem Admission Diagnosis/Problem Weakness Source of Information: Patient - History of Present Illness Initial Comments - Free Text/Narative: 74-year-old gentleman with a history of chronic kidney disease stage III, hypertension,bladder tumor status post the surgical neobladder creation with self-catheterization, prior stroke. A month ago the patient had right shoulder replacement. After a fall developed left hip fracture and underwent surgery. postoperative complication was acute blood loss anemia. The patient was transferred to our facility for further physical and occupational therapy. he is reporting moderate, sharp pain in the left hip, worse with movements, present since surgery, No associated nausea or vomiting. Pain is better with oxycodone Left Hip Pain Score (Numeric/FACES): 3 - Related Data Allergies/Adverse Reactions: Allergies Allergy/AdvReac Type Severity Reaction Status Date / Time No Known Allergies Allergy Verified 11/19/20 08:41 Home Medications: Home Meds Clopidogrel [Plavix] 75 mg PO DAILY 08/12/14 [History] Multivitamin [Multi-Vitamin Daily] 1 tab PO DAILY 08/12/14 [History] Zinc 50 mg PO DAILY 08/12/14 [History] Ferrous Sulfate [Iron] 325 mg PO DAILY 03/31/20 [History] Acetaminophen 1,000 mg PO Q8H PRN 11/23/20 [History] Famotidine [Pepcid] 20 mg PO BID 11/23/20 [History] Losartan [Cozaar] 25 mg PO DAILY 11/23/20 [History] Lutein/Minerals/Vit A,C & E [Ocuvite] 1 tab PO DAILY 11/23/20 [History] Pravastatin [Pravachol] 20 mg PO BEDTIME 11/23/20 [History] Sodium Bicarbonate 650 mg PO BID 11/23/20 [History] oxyCODONE 5 mg PO Q8H PRN 11/23/20 [History] Past Medical History HEENT History: Reports: Impaired Vision, Macular Degeneration Other HEENT History: wears glasses. [place] Cardiovascular History: Reports: Hypertension Respiratory History: Reports: COPD Gastrointestinal History: Reports: Colon Polyp, GERD Other Gastrointestinal History: duodenal bleeding ulcer Genitourinary History: Reports: Acute Renal Failure, Hydronephrosis, Neurogenic Bladder, Renal Disease, Retention, Urinary, Urinary Incontinence, UTI, Recurrent, Other (See Below) Other Genitourinary History: kidneys under stress due to dehydration Musculoskeletal History: Reports: Osteoarthritis Neurological History: Reports: CVA Psychiatric History: Reports: None Endocrine/Metabolic History: Reports: Obesity/BMI 30+, Other (See Below) Other Endocrine/Metabolic History: pre diabetic Hematologic History: Reports: Blood Transfusion(s) Immunologic History: Reports: None Oncologic (Cancer) History: Reports: Bladder, Malignant Melanoma Dermatologic History: Reports: Melanoma, Other (See Below) Other Dermatologic History: removed melanoma growth - Infectious Disease History Infectious Disease History: Reports: Chicken Pox, Measles Other Infectious Disease History: E-coli history - Past Surgical History Head Surgeries/Procedures: Reports: None HEENT Surgical History: Reports: Adenoidectomy, Tonsillectomy Cardiovascular Surgical History: Reports: None GI Surgical History: Reports: Colonoscopy, EGD, Polypectomy Male Surgical History: Reports: Cystectomy, Prostatectomy, Vasectomy, Other (See Below) Other Male Surgeries/Procedures: Pt states bladder replacement. Has external catheter at HS. Bladder cancer history Endocrine Surgical History: Reports: None Neurological Surgical History: Reports: None Musculoskeletal Surgical History: Reports: Shoulder Surgery Other Musculoskeletal Surgeries/Procedures:: left shoulder tendon repair, L hip surgery Dermatological Surgical History: Reports: Skin Biopsy Social & Family History - Family History Family Medical History: No Pertinent Family History - Tobacco Use Tobacco Use Status *Q: Current Every Day Tobacco User Years of Tobacco use: 50 Packs/Tins Daily: 1 - Caffeine Use Caffeine Use: Reports: Coffee, Soda Caffeine Use Comment: 6 soda daily - Recreational Drug Use Recreational Drug Use: No - Living Situation & Occupation Living situation: Reports: with Family Occupation: Employed H&P Review of Systems - Review of Systems: Review Of Systems: See Below General: Denies: Fever, Chills Pulmonary: Denies: Shortness of Breath Cardiovascular: Denies: Chest Pain, Edema Psychiatric: Denies: Confusion Exam - Exam Exam: See Below - Vital Signs Vital Signs: Last Vital Signs Temp 98.7 F 11/23/20 11:55 Pulse 98 11/23/20 11:55 Resp 20 11/23/20 11:55 BP 133/78 11/23/20 11:55 Pulse Ox 97 11/23/20 11:55 Weight: 194 lb 4.8 oz - Exam General: Alert, Oriented Neck: Supple Lungs: Clear to Auscultation, Normal Respiratory Effort Cardiovascular: Regular Rate, Regular Rhythm GI/Abdominal Exam: Normal Bowel Sounds, Soft, Non-Tender Extremities: No Pedal Edema Skin: Warm, Dry Neuro Extensive - Mental Status: Alert, Oriented x3 - Patient Data Lab Results Last 24 hrs: Laboratory Results - last 24 hr 11/23/20 Range/Units 12:09 POC Glucose 140 H (83-110) mg/dl - Problem List (1) CKD (chronic kidney disease) stage 3, GFR 30-59 ml/min SNOMED Code(s): 477156141 ICD Code: N18.30 - CHRONIC KIDNEY DISEASE, STAGE 3 UNSPECIFIED Status: Acute Current Visit: Yes (2) Closed intertrochanteric fracture of femur SNOMED Code(s): 68923333 ICD Code: S72.143A - DISPLACED INTERTROCHANTERIC FRACTURE OF UNSP FEMUR, INIT Status: Acute Current Visit: No (3) Peripheral artery disease SNOMED Code(s): 353457405 ICD Code: I73.9 - PERIPHERAL VASCULAR DISEASE, UNSPECIFIED Status: Acute Current Visit: No Problem List Initiated/Reviewed/Updated: Yes Orders Last 24hrs: Active Orders 24 hr Category Date Time Status Patient Status [ADT] Routine ADT 11/23/20 13:42 Active Antiembolic Devices [RC] PER UNIT ROUTINE Care 11/23/20 13:44 Active Oxygen Therapy [RC] PRN Care 11/23/20 13:42 Active Up With Assistance [RC] ASDIRECTED Care 11/23/20 13:42 Active VTE/DVT Education [RC] PER UNIT ROUTINE Care 11/23/20 13:42 Active Vital Signs [RC] Q4H Care 11/23/20 13:42 Active OT Evaluation and Treatment [CONS] Routine Cons 11/23/20 13:55 Active PT Evaluation and Treatment [CONS] Routine Cons 11/23/20 13:55 Active Regular Diet [DIET] Diet 11/23/20 Dinner Active Acetaminophen [TylenoL] Med 11/23/20 13:42 Ordered 650 mg PO Q4H PRN Clopidogrel [Plavix] Med 11/24/20 09:00 Ordered 75 mg PO DAILY Docusate Sodium [Colace] Med 11/23/20 13:42 Ordered 100 mg PO BID PRN Enoxaparin [Lovenox] Med 11/24/20 09:00 Ordered 30 mg SUBCUT DAILY Famotidine [Pepcid] Med 11/23/20 21:00 Ordered 20 mg PO BID Ferrous Sulfate Med 11/24/20 09:00 Ordered 325 mg PO DAILY Losartan [Cozaar] Med 11/24/20 09:00 Ordered 25 mg PO DAILY Lutein/Minerals/Vit A,C & E [I-Heriberto] Med 11/24/20 09:00 Ordered 1 each PO DAILY Multivitamin [Multi-Vitamin Daily] Med 11/24/20 09:00 Ordered 1 tab PO DAILY Ondansetron [Zofran ODT] Med 11/23/20 13:42 Ordered 4 mg PO Q6H PRN Pravastatin [Pravachol] Med 11/23/20 21:00 Ordered 20 mg PO BEDTIME Sodium Bicarbonate Med 11/23/20 21:00 Ordered 650 mg PO BID Temazepam [Restoril] Med 11/23/20 13:42 Ordered 15 mg PO BEDTIME PRN oxyCODONE Med 11/23/20 13:44 Ordered 5 mg PO Q8H PRN Antiembolic Hose [OM.PC] Per Unit Routine Oth 11/23/20 13:43 Ordered Resuscitation Status Routine Resus Stat 11/23/20 13:42 Ordered Medication Orders Acetaminophen (Tylenol) 650 mg PO Q4H PRN PRN Reason: Pain (Mild 1-3)/fever Clopidogrel Bisulfate (Plavix) 75 mg PO DAILY [facility] Docusate Sodium (Colace) 100 mg PO BID PRN PRN Reason: Constipation Enoxaparin Sodium (Lovenox) 30 mg SUBCUT DAILY [facility] Famotidine (Pepcid) 20 mg PO BID [facility] Ferrous Sulfate (Ferrous Sulfate) 325 mg PO DAILY [facility] Losartan Potassium (Cozaar) 25 mg PO DAILY [facility] Multivitamins/Minerals (I-Heriberto) 1 each PO DAILY [facility] Non-Formulary Medication (Multivitamin [Multi-Vitamin Daily]) 1 tab PO DAILY [facility] Ondansetron HCl (Zofran Odt) 4 mg PO Q6H PRN PRN Reason: nausea, able to take PO Oxycodone HCl (Oxycodone) 5 mg PO Q8H PRN PRN Reason: moderate pain Pravastatin Sodium (Pravachol) 20 mg PO BEDTIME [facility] Sodium Bicarbonate (Sodium Bicarbonate) 650 mg PO BID [facility] Temazepam (Restoril) 15 mg PO BEDTIME PRN PRN Reason: Sleep Assessment/Plan Comment:: 74-year-old gentleman with a history of chronic kidney disease stage III, hypertension,bladder tumor status post the surgical neobladder creation with self-catheterization, prior stroke. A month ago the patient had right shoulder replacement. After a fall developed left hip fracture and underwent surgery. postoperative complication was acute blood loss anemia. The patient was transferred to our facility for further physical and occupational therapy. we will consult physical and occupational therapy DVT prophylaxis will be with Lovenox Peripheral vascular disease with history of stroke Resume Plavix neobladder Self-catheterization as needed Chronic kidney disease stage III Continue sodium bicarbonate Follow electrolytes and renal function periodically
[2020-11-23] MEDS: Acetaminophen 325 MG Tab PO PRN (15:59)
[2020-11-23] MEDS: Sodium Bicarbonate 650 MG Tab PO SCH (20:26)
[2020-11-23] MEDS: Pravastatin 20 MG Tab PO SCH (20:26)
[2020-11-23] MEDS: Famotidine 20 MG Tab PO SCH (20:26)
[2020-11-24 06:12] LABS: ANION GAP 16.9 mEq/L (7-13)
[2020-11-24] MEDS: Multivitamins,Therapeutic Tab PO SCH (08:12)
[2020-11-24] MEDS: Ferrous Sulfate 325 MG Tab PO SCH (08:12)
[2020-11-24] MEDS: Sodium Bicarbonate 650 MG Tab PO SCH ×2 (08:12→21:19)
[2020-11-24] MEDS: Clopidogrel 75 MG Tab PO SCH (08:13)
[2020-11-24] MEDS: Lutein/Minerals/Vit A,C & E Tab PO SCH (08:13)
[2020-11-24] MEDS: Famotidine 20 MG Tab PO SCH ×2 (08:13→21:19)
[2020-11-24] MEDS: Losartan 25 MG Tab PO SCH (08:13)
[2020-11-24] MEDS ORDERED: Enoxaparin 30 MG/0.3 ML Syringe SUBCUT SCH (09:00)
[2020-11-24] MEDS: Enoxaparin 40 MG/0.4 ML Syringe SUBCUT SCH (13:16)
[2020-11-24] MEDS: Pravastatin 20 MG Tab PO SCH (21:19)
[2020-11-25] MEDS: Multivitamins,Therapeutic Tab PO SCH (08:59)
[2020-11-25] MEDS: Sodium Bicarbonate 650 MG Tab PO SCH ×2 (09:00→21:12)
[2020-11-25] MEDS: Lutein/Minerals/Vit A,C & E Tab PO SCH (09:00)
[2020-11-25] MEDS: Clopidogrel 75 MG Tab PO SCH (09:01)
[2020-11-25] MEDS: Ferrous Sulfate 325 MG Tab PO SCH (09:01)
[2020-11-25] MEDS: Famotidine 20 MG Tab PO SCH ×2 (09:02→21:12)
[2020-11-25] MEDS: Losartan 25 MG Tab PO SCH (09:02)
[2020-11-25] MEDS: Enoxaparin 40 MG/0.4 ML Syringe SUBCUT SCH (09:04)
[2020-11-25] MEDS: Acetaminophen 325 MG Tab PO PRN (09:47)
[2020-11-25] MEDS: Pravastatin 20 MG Tab PO SCH (21:12)
[2020-11-25] MEDS: Melatonin 3 MG Tab PO PRN (22:24)
[2020-11-26] MEDS: Lutein/Minerals/Vit A,C & E Tab PO SCH (09:14)
[2020-11-26] MEDS: Losartan 25 MG Tab PO SCH (09:15)
[2020-11-26] MEDS: Famotidine 20 MG Tab PO SCH ×2 (09:18→20:43)
[2020-11-26] MEDS: Ferrous Sulfate 325 MG Tab PO SCH (09:18)
[2020-11-26] MEDS: Sodium Bicarbonate 650 MG Tab PO SCH ×2 (09:18→20:43)
[2020-11-26] MEDS: Clopidogrel 75 MG Tab PO SCH (09:18)
[2020-11-26] MEDS: Multivitamins,Therapeutic Tab PO SCH (09:19)
[2020-11-26] MEDS: Acetaminophen 325 MG Tab PO PRN ×2 (09:19→20:43)
[2020-11-26] MEDS: Enoxaparin 40 MG/0.4 ML Syringe SUBCUT SCH (09:20)
[2020-11-26] MEDS: Melatonin 3 MG Tab PO PRN (20:43)
[2020-11-26] MEDS: Pravastatin 20 MG Tab PO SCH (20:43)
[2020-11-26] MEDS: rOPINIRole 0.25 MG Tab PO PRN (20:47)
[2020-11-27] MEDS: Ferrous Sulfate 325 MG Tab PO SCH (08:46)
[2020-11-27] MEDS: Multivitamins,Therapeutic Tab PO SCH (08:46)
[2020-11-27] MEDS: Sodium Bicarbonate 650 MG Tab PO SCH ×2 (08:46→20:12)
[2020-11-27] MEDS: Clopidogrel 75 MG Tab PO SCH (08:46)
[2020-11-27] MEDS: Lutein/Minerals/Vit A,C & E Tab PO SCH (08:46)
[2020-11-27] MEDS: Losartan 25 MG Tab PO SCH (08:47)
[2020-11-27] MEDS: Acetaminophen 325 MG Tab PO PRN ×2 (08:47→20:12)
[2020-11-27] MEDS: Famotidine 20 MG Tab PO SCH ×2 (08:47→20:12)
[2020-11-27] MEDS: Enoxaparin 40 MG/0.4 ML Syringe SUBCUT SCH (08:48)
[2020-11-27] MEDS: Loperamide 2 MG Cap PO PRN (20:12)
[2020-11-27] MEDS: Pravastatin 20 MG Tab PO SCH (20:12)
[2020-11-27] MEDS: rOPINIRole 0.25 MG Tab PO PRN (20:12)
[2020-11-27] MEDS: Melatonin 3 MG Tab PO PRN (20:12)
[2020-11-28 06:39] LABS: ANION GAP 14.8 mEq/L (7-13)
[2020-11-28] MEDS: Famotidine 20 MG Tab PO SCH ×2 (08:30→20:11)
[2020-11-28] MEDS: Sodium Bicarbonate 650 MG Tab PO SCH ×2 (08:30→20:11)
[2020-11-28] MEDS: Ferrous Sulfate 325 MG Tab PO SCH (08:30)
[2020-11-28] MEDS: Clopidogrel 75 MG Tab PO SCH (08:30)
[2020-11-28] MEDS: Lutein/Minerals/Vit A,C & E Tab PO SCH (08:30)
[2020-11-28] MEDS: Losartan 25 MG Tab PO SCH (08:31)
[2020-11-28] MEDS: Multivitamins,Therapeutic Tab PO SCH (08:31)
[2020-11-28] MEDS: Enoxaparin 40 MG/0.4 ML Syringe SUBCUT SCH (08:31)
--- NOTE | 2020-11-28 10:20 | PN ---
DATE: 11/28/2020 SUBJECTIVE: The patient is a 74-year-old male with history of chronic kidney disease stage 3, hypertension, bladder tumour status post surgical neobladder creation with self-catheterization, history of right shoulder replacement a month ago, and history of fall with recent left hip fracture and status post surgery, admitted to swing bed for further physical and occupational therapy. The patient this morning is doing fairly well. He had 6 loose bowel movements yesterday, but today, he is better. He denies any chest pain, shortness of breath, fever, chills, abdominal pain, nausea, vomiting, nor any other complaints. LABORATORY DATA: Lab workup this morning, CBC: WBC is 9.5, hemoglobin is 9.8, hematocrit is 30.3, platelet is 327. Chem-6: BUN is 34, creatinine is 1.54, glucose is 111. The rest of the panel unremarkable. OBJECTIVE: Vital Signs: Blood pressure is 126/68, pulse 84, respirations of 18, temperature of 98.2, saturation is 98% on room air. Heart: Regular rate and rhythm. Normal S1 and S2. No gallops. No rubs. Lungs: Equal bilaterally. No crackles. No wheezing. Abdomen: Soft, nontender. Bowel sounds positive. Extremities: Negative for any pedal edema. No calf tenderness. Examination of the right shoulder and operative site is dry and intact and left hip is remarkable for the dressing. MEDICATIONS: Reviewed. PLAN: We will continue with his present management and continue with Lovenox for DVT prophylaxis and continue with PT and OT and the rest of his management. [facility] /[id number]
[2020-11-28] MEDS: Loperamide 2 MG Cap PO PRN (11:43)
[2020-11-28] MEDS: Pravastatin 20 MG Tab PO SCH (20:10)
[2020-11-28] MEDS: rOPINIRole 0.25 MG Tab PO PRN (20:10)
[2020-11-28] MEDS: Melatonin 3 MG Tab PO PRN (20:11)
[2020-11-28] MEDS: Acetaminophen 325 MG Tab PO PRN (20:11)
[2020-11-28] MEDS: Temazepam 15 MG Cap PO PRN (23:12)
[2020-11-29] MEDS: Losartan 25 MG Tab PO SCH (10:01)
[2020-11-29] MEDS: Clopidogrel 75 MG Tab PO SCH (10:01)
[2020-11-29] MEDS: Sodium Bicarbonate 650 MG Tab PO SCH ×2 (10:01→22:11)
[2020-11-29] MEDS: Enoxaparin 40 MG/0.4 ML Syringe SUBCUT SCH (10:01)
[2020-11-29] MEDS: Famotidine 20 MG Tab PO SCH ×2 (10:01→22:10)
[2020-11-29] MEDS: Ferrous Sulfate 325 MG Tab PO SCH (10:01)
[2020-11-29] MEDS: Multivitamins,Therapeutic Tab PO SCH (10:03)
[2020-11-29] MEDS: Acetaminophen 325 MG Tab PO PRN ×2 (10:18→22:13)
[2020-11-29] MEDS: Lutein/Minerals/Vit A,C & E Tab PO SCH (10:18)
[2020-11-29] MEDS: Loperamide 2 MG Cap PO PRN (10:18)
[2020-11-29] MEDS: Pravastatin 20 MG Tab PO SCH (22:11)
[2020-11-29] MEDS: Temazepam 15 MG Cap PO PRN (22:13)
[2020-11-29] MEDS: rOPINIRole 0.25 MG Tab PO PRN (22:13)
[2020-11-30] MEDS: Ferrous Sulfate 325 MG Tab PO SCH (09:38)
[2020-11-30] MEDS: Sodium Bicarbonate 650 MG Tab PO SCH ×2 (09:38→21:26)
[2020-11-30] MEDS: Multivitamins,Therapeutic Tab PO SCH (09:38)
[2020-11-30] MEDS: Famotidine 20 MG Tab PO SCH ×2 (09:38→21:25)
[2020-11-30] MEDS: Lutein/Minerals/Vit A,C & E Tab PO SCH (09:39)
[2020-11-30] MEDS: Enoxaparin 40 MG/0.4 ML Syringe SUBCUT SCH (09:39)
[2020-11-30] MEDS: Clopidogrel 75 MG Tab PO SCH (09:39)
[2020-11-30] MEDS: Losartan 25 MG Tab PO SCH (09:39)
[2020-11-30] MEDS: Acetaminophen 325 MG Tab PO PRN ×2 (09:52→21:27)
[2020-11-30] MEDS: Pravastatin 20 MG Tab PO SCH (21:25)
[2020-11-30] MEDS: Metoprolol Succinate 25 MG Tab.ER PO SCH (21:26)
[2020-11-30] MEDS: Temazepam 15 MG Cap PO PRN (21:26)
[2020-11-30] MEDS: rOPINIRole 0.25 MG Tab PO PRN (21:27)
[2020-11-30] MEDS ORDERED: Sodium Chloride 0.9% 10 ML Syringe FLUSH PRN (22:56)
[2020-11-30] MEDS ORDERED: cefTRIAXone 1 GM in Sodium Chloride 0.9% 50 ML IV SCH (23:00)
[2020-12-01] MEDS: Multivitamins,Therapeutic Tab PO SCH (08:26)
[2020-12-01] MEDS: Metoprolol Succinate 25 MG Tab.ER PO SCH ×2 (08:26→20:51)
[2020-12-01] MEDS: Ferrous Sulfate 325 MG Tab PO SCH (08:26)
[2020-12-01] MEDS: Famotidine 20 MG Tab PO SCH ×2 (08:26→20:51)
[2020-12-01] MEDS: Lutein/Minerals/Vit A,C & E Tab PO SCH (08:26)
[2020-12-01] MEDS: Sodium Bicarbonate 650 MG Tab PO SCH ×2 (08:27→20:51)
[2020-12-01] MEDS: Enoxaparin 40 MG/0.4 ML Syringe SUBCUT SCH (08:27)
[2020-12-01] MEDS: Clopidogrel 75 MG Tab PO SCH (08:27)
[2020-12-01] MEDS: Acetaminophen 325 MG Tab PO PRN ×2 (08:27→20:51)
[2020-12-01] MEDS ORDERED: Ciprofloxacin 500 MG Tab PO SCH (09:30)
[2020-12-01] MEDS: Ciprofloxacin 500 MG Tab PO SCH ×2 (10:38→20:51)
[2020-12-01] MEDS: rOPINIRole 0.25 MG Tab PO PRN (20:50)
[2020-12-01] MEDS: Pravastatin 20 MG Tab PO SCH (20:51)
[2020-12-01] MEDS: Temazepam 15 MG Cap PO PRN (20:51)
[2020-12-02] MEDS: Famotidine 20 MG Tab PO SCH ×2 (08:33→20:52)
[2020-12-02] MEDS: Lutein/Minerals/Vit A,C & E Tab PO SCH (08:33)
[2020-12-02] MEDS: Multivitamins,Therapeutic Tab PO SCH (08:33)
[2020-12-02] MEDS: Metoprolol Succinate 25 MG Tab.ER PO SCH ×2 (08:33→20:53)
[2020-12-02] MEDS: Ferrous Sulfate 325 MG Tab PO SCH (08:33)
[2020-12-02] MEDS: Ciprofloxacin 500 MG Tab PO SCH ×2 (08:33→20:53)
[2020-12-02] MEDS: Sodium Bicarbonate 650 MG Tab PO SCH ×2 (08:33→20:53)
[2020-12-02] MEDS: Clopidogrel 75 MG Tab PO SCH (08:33)
[2020-12-02] MEDS: Enoxaparin 40 MG/0.4 ML Syringe SUBCUT SCH (08:34)
[2020-12-02] MEDS: Pravastatin 20 MG Tab PO SCH (20:52)
[2020-12-02] MEDS: Temazepam 15 MG Cap PO PRN (20:52)
[2020-12-02] MEDS: rOPINIRole 0.25 MG Tab PO PRN (20:53)
[2020-12-02] MEDS: Acetaminophen 325 MG Tab PO PRN (20:53)
[2020-12-03 08:22] VITALS: PULSE 90
[2020-12-03] MEDS: Ferrous Sulfate 325 MG Tab PO SCH (08:53)
[2020-12-03] MEDS: Famotidine 20 MG Tab PO SCH (08:53)
[2020-12-03] MEDS: Lutein/Minerals/Vit A,C & E Tab PO SCH (08:53)
[2020-12-03] MEDS: Metoprolol Succinate 25 MG Tab.ER PO SCH (08:54)
[2020-12-03] MEDS: Ciprofloxacin 500 MG Tab PO SCH (08:54)
[2020-12-03] MEDS: Sodium Bicarbonate 650 MG Tab PO SCH (08:54)
[2020-12-03] MEDS: Clopidogrel 75 MG Tab PO SCH (08:55)
[2020-12-03] MEDS: Multivitamins,Therapeutic Tab PO SCH (08:55)
[2020-12-03] MEDS: Enoxaparin 40 MG/0.4 ML Syringe SUBCUT SCH (08:55)
[2020-12-03 08:59] VITALS: BP 111/61
--- NOTE | 2020-12-03 09:36 | PCM.DCSUM1 ---
Discharge Summary - Hospital Course Free Text/Narrative:: Patient is a 74-year-old male with a history of chronic kidney disease, hypertension, bladder tumor status post surgical neobladder creation with self- catheterization, history of shoulder replacement a month ago admitted to swing bed for further physical therapy status post surgery for fracture of left hip. Stay was complicated by UTI which grew Proteus. Patient was initially started on ceftriaxone and later transitioned to Cipro. Patient is doing well with no complaints at this time. Diagnosis: Stroke: No - Discharge Data Discharge Date: 12/03/20 Discharge Disposition: Home, Self-Care 01 Condition: Good - Referral to Home Health Primary Care Physician: VILMA Mendosa - Discharge Diagnosis/Problem(s) (1) Closed intertrochanteric fracture of femur SNOMED Code(s): 57371261 ICD Code: S72.143A - DISPLACED INTERTROCHANTERIC FRACTURE OF UNSP FEMUR, INIT Status: Acute Current Visit: Yes - Patient Summary/Data Consults: Consultations 11/23/20 13:55 OT Evaluation and Treatment [CONS] Routine PT Evaluation and Treatment [CONS] Routine - Patient Instructions Diet: Usual Diet as Tolerated Activity: As Tolerated - Discharge Plan *PRESCRIPTION DRUG MONITORING PROGRAM REVIEWED*: Not Applicable *COPY OF PRESCRIPTION DRUG MONITORING REPORT IN PATIENT VINEET: Not Applicable Prescriptions/Med Rec: rOPINIRole [Requip] 0.5 mg PO BEDTIME PRN 30 Days #30 tablet PRN Reason: Restless legs Metoprolol Succinate [Toprol XL] 25 mg PO BID 30 Days #60 tab.er Home Medications: Home Meds Clopidogrel [Plavix] 75 mg PO DAILY 08/12/14 [History] Multivitamin [Multi-Vitamin Daily] 1 tab PO DAILY 08/12/14 [History] Zinc 50 mg PO DAILY 08/12/14 [History] Ferrous Sulfate [Iron] 325 mg PO DAILY 03/31/20 [History] Acetaminophen [Pain Reliever] 1,000 mg PO Q8H 11/23/20 [History] Famotidine [Pepcid] 20 mg PO BID 11/23/20 [History] Losartan [Cozaar] 25 mg PO DAILY 11/23/20 [History] Lutein/Minerals/Vit A,C & E [Ocuvite] 1 tab PO DAILY 11/23/20 [History] Pravastatin [Pravachol] 20 mg PO BEDTIME 11/23/20 [History] Sodium Bicarbonate 650 mg PO BIDMEALS 11/23/20 [History] Vit C/E/Zn/Coppr/Lutein/Zeaxan [Preservision Areds 2 Softgel] 1 cap PO DAILY 11/23/20 [History] Metoprolol Succinate [Toprol XL] 25 mg PO BID 30 Days #60 tab.er 12/03/20 [Rx] rOPINIRole [Requip] 0.5 mg PO BEDTIME PRN 30 Days #30 tablet 12/03/20 [Rx] Referrals: Marsha Granda PA [Primary Care Provider] - - Discharge Summary/Plan Comment DC Time >30 min.: Yes - Review of Systems General: Reports: No Symptoms HEENT: Reports: No Symptoms Pulmonary: Reports: No Symptoms Cardiovascular: Reports: No Symptoms Gastrointestinal: Reports: No Symptoms Genitourinary: Reports: No Symptoms Musculoskeletal: Reports: No Symptoms Skin: Reports: No Symptoms Neurological: Reports: No Symptoms Psychiatric: Reports: No Symptoms - Patient Data Vitals - Most Recent: Last Vital Signs Temp 99 F 12/03/20 08:00 Pulse 90 12/03/20 08:54 Resp 18 12/03/20 08:00 BP 111/61 12/03/20 08:54 Pulse Ox 96 12/03/20 08:00 Weight - Most Recent: 190 lb 7 oz I&O - Last 24 hours: Intake & Output 12/02/20 12/03/20 12/03/20 22:59 06:59 14:59 Intake Total 1175 Output Total 750 Balance 425 DELROY Results - Last 24 hrs: Microbiology 11/30/20 20:00 Urine Culture - Final Urine, Voided Proteus Vulgaris Med Orders - Current: Current Medications Acetaminophen (Tylenol) 650 mg PO Q4H PRN PRN Reason: Pain (Mild 1-3)/fever Last Admin: 12/02/20 20:53 Dose: 650 mg Documented by: Ciprofloxacin (Ciprofloxacin Hcl) 500 mg PO BID [facility] Last Admin: 12/03/20 08:54 Dose: 500 mg Documented by: Clopidogrel Bisulfate (Plavix) 75 mg PO DAILY [facility] Last Admin: 12/03/20 08:55 Dose: 75 mg Documented by: Docusate Sodium (Colace) 100 mg PO BID PRN PRN Reason: Constipation Last Admin: 11/23/20 15:59 Dose: 100 mg Documented by: Enoxaparin Sodium (Lovenox) 40 mg SUBCUT DAILY [facility] Last Admin: 12/03/20 08:55 Dose: 40 mg Documented by: Famotidine (Pepcid) 20 mg PO BID [facility] Last Admin: 12/03/20 08:53 Dose: 20 mg Documented by: Ferrous Sulfate (Ferrous Sulfate) 325 mg PO DAILY [facility] Last Admin: 12/03/20 08:53 Dose: 325 mg Documented by: Loperamide HCl (Imodium) 2 mg PO Q6H PRN PRN Reason: Diarrhea Last Admin: 11/29/20 10:18 Dose: 2 mg Documented by: Melatonin (Melatonin) 3 mg PO BEDTIME PRN PRN Reason: Sleep Last Admin: 11/28/20 20:11 Dose: 3 mg Documented by: Metoprolol Succinate (Toprol Xl) 25 mg PO BID [facility] Last Admin: 12/03/20 08:54 Dose: 25 mg Documented by: Multivitamins (Thera) 1 each PO DAILY [facility] Last Admin: 12/03/20 08:55 Dose: 1 each Documented by: Multivitamins/Minerals (I-Heriberto) 1 each PO DAILY [facility] Last Admin: 12/03/20 08:53 Dose: 1 each Documented by: Ondansetron HCl (Zofran Odt) 4 mg PO Q6H PRN PRN Reason: nausea, able to take PO Oxycodone HCl (Oxycodone) 5 mg PO Q8H PRN PRN Reason: moderate pain Pravastatin Sodium (Pravachol) 20 mg PO BEDTIME [facility] Last Admin: 12/02/20 20:52 Dose: 20 mg Documented by: Ropinirole HCl (Requip) 0.5 mg PO BEDTIME PRN PRN Reason: Restless legs Last Admin: 12/02/20 20:53 Dose: 0.5 mg Documented by: Sodium Bicarbonate (Sodium Bicarbonate) 650 mg PO BID [facility] Last Admin: 12/03/20 08:54 Dose: 650 mg Documented by: Sodium Chloride (Saline Flush) 10 ml FLUSH ASDIRECTED PRN PRN Reason: Keep Vein Open Temazepam (Restoril) 15 mg PO BEDTIME PRN PRN Reason: Sleep Last Admin: 12/02/20 20:52 Dose: 15 mg Documented by: Discontinued Medications Hydrocodone Bitart/Acetaminophen ([place] 325-10 Mg) 1 tab PO Q4H PRN PRN Reason: Pain (moderate 4-6) Enoxaparin Sodium (Lovenox) 30 mg SUBCUT DAILY [facility] Last Admin: 11/24/20 11:42 Dose: Not Given Documented by: Heparin Sodium (Porcine) (Heparin Sodium) 5,000 units SUBCUT Q8HR [facility] Ceftriaxone Sodium 1 gm/ (Sodium Chloride) 50 mls @ 100 mls/hr IV Q24H [facility] Last Admin: 11/30/20 23:18 Dose: 100 mls/hr Documented by: Losartan Potassium (Cozaar) 25 mg PO DAILY [facility] Last Admin: 11/30/20 09:39 Dose: 25 mg Documented by: - Exam General: Reports: Alert, Oriented HEENT: Reports: EOMI Neck: Reports: Trachea Midline Lungs: Reports: Clear to Auscultation, Normal Respiratory Effort Cardiovascular: Reports: Regular Rate GI/Abdominal Exam: Normal Bowel Sounds, Soft, No Distention Extremities: Normal Inspection Skin: Reports: Warm Neurological: Reports: No New Focal Deficit Psy/Mental Status: Reports: Alert, Normal Affect, Normal Mood
== END 2020-12-03 11:00 | disposition home or self-care (01) | DRG 560 ==
LOC: DL.MS 11-23 11:59 → UNDOADMIN 11-23 11:59
PROVIDERS: ADMIT Internal Medicine; ATTEND Internal Medicine
DX: S72.141D Displaced intertrochanteric fracture of right femur, subsequent encounter for closed fracture with routine healing (principal); N39.0 Urinary tract infection, site not specified; I12.9 Hypertensive chronic kidney disease with stage 1 through stage 4 chronic kidney disease, or unspecified chronic kidney disease; N18.30 Chronic kidney disease, stage 3 unspecified; Z96.611 Presence of right artificial shoulder joint; K21.9 Gastro-esophageal reflux disease without esophagitis; N31.9 Neuromuscular dysfunction of bladder, unspecified; R33.9 Retention of urine, unspecified; N39.498 Other specified urinary incontinence; M19.90 Unspecified osteoarthritis, unspecified site; E66.9 Obesity, unspecified; F17.200 Nicotine dependence, unspecified, uncomplicated; I73.9 Peripheral vascular disease, unspecified; D63.1 Anemia in chronic kidney disease; R53.1 Weakness; B96.4 Proteus (mirabilis) (morganii) as the cause of diseases classified elsewhere; Z86.73 Personal history of transient ischemic attack (TIA), and cerebral infarction without residual deficits; Z85.820 Personal history of malignant melanoma of skin; Z79.899 Other long term (current) drug therapy; Z79.01 Long term (current) use of anticoagulants; Z68.27 Body mass index [BMI] 27.0-27.9, adult
CPT/HCPCS: 36415; 51701; 80048; 81001; 82962; 85025; 87070; 87086; 87088; 87186; 87493; 97110-GP; 97116-GP; 97140-GO; 97140-GP; 97162-GP; 97166-GO; 97530-GO; 97530-GP; 97535-GO; 99304; 99308; 99316; A9270-GY; J0696; J1650

== ENCOUNTER 2023-11-28 06:21 | Day surgery (SDC) | payer MEDICARE, OTHER ==
[~2023-11-28 06:21] MED LIST changes: -Sodium Chloride 0.9% 1,000 ML IV ONE; +Sodium Chloride 0.9% 10 ML Syringe FLUSH SCH
[2023-11-28] MEDS ORDERED: Tropicamide 1% Ophth Soln 15 ML Bottle EYELF ONE (06:30)
[2023-11-28] MEDS ORDERED: Sodium Chloride 0.9% 10 ML Syringe FLUSH PRN (06:30)
[2023-11-28] MEDS ORDERED: Ondansetron 4 MG/2 ML SDV IVPUSH PRN (06:30)
[2023-11-28] MEDS ORDERED: Acetaminophen 325 MG Tab PO PRN (06:30)
[2023-11-28] MEDS ORDERED: Moxifloxacin 0.5% Ophth Soln 3 ML Bottle EYELF ONE (06:30)
[2023-11-28] MEDS ORDERED: Proparacaine 0.5% Ophth Soln 15 ML Bottle EYELF ONE ×2 (06:30→08:24)
[2023-11-28] MEDS ORDERED: Acetaminophen/Codeine 300-30 MG Tab PO PRN (06:30)
[2023-11-28] MEDS ORDERED: Timolol Maleate 0.5% Ophth Soln 5 ML Bottle EYELF ONE (06:30)
[2023-11-28] MEDS ORDERED: Cataract Ophth Solution EYELF ONE (06:30)
[2023-11-28] MEDS ORDERED: Povidone-Iodine 5% Sterile Ophth Soln 30 ML Bottle EYELF ONE ×2 (06:30→08:25)
[2023-11-28] MEDS ORDERED: Proparacaine 0.5% Ophth Soln 15 ML Bottle ONE (06:52)
[2023-11-28] MEDS: Phenylephrine 10% Ophth Soln 5 ML Bot EYELF PRN ×2 (07:12→08:09)
[2023-11-28] MEDS ORDERED: Apraclonidine 0.5% Ophth Soln 5 ML Bot EYELF ONE (08:25)
[2023-11-28] MEDS ORDERED: Diclofenac Sodium 0.1% Ophth Soln 5 ML Bottle EYELF ONE (08:26)
[2023-11-28] MEDS ORDERED: Dexamethasone/Neomycin/Polymyxin B Ophth Oint 3.5 GM Tube EYELF ONE (08:26)
[2023-11-28] MEDS ORDERED: Vancomycin 500 MG SDV EYELF ONE (08:27)
[2023-11-28] MEDS ORDERED: Lidocaine 1% 30 ML SDV INJECT ONE (08:27)
[2023-11-28] MEDS ORDERED: Dexamethasone 4 MG/ML SDV IOCULAR ONE (08:32)
[2023-11-28] MEDS ORDERED: Chondroitin Sulfate/Hyaluronate Sodium Ophth Inj 0.5 ML Syringe IOCULAR ONE (08:35)
[2023-11-28 09:18] VITALS: BP 139/67; PULSE 70
== END 2023-11-28 09:37 | disposition home or self-care (01) ==
LOC: DL.SDS 06:21
PROVIDERS: ATTEND Ophthalmology
DX: H25.812 Combined forms of age-related cataract, left eye (principal); I12.9 Hypertensive chronic kidney disease with stage 1 through stage 4 chronic kidney disease, or unspecified chronic kidney disease; N18.30 Chronic kidney disease, stage 3 unspecified; E78.5 Hyperlipidemia, unspecified; H91.90 Unspecified hearing loss, unspecified ear; K21.9 Gastro-esophageal reflux disease without esophagitis; F17.210 Nicotine dependence, cigarettes, uncomplicated; Z79.899 Other long term (current) drug therapy
CPT/HCPCS: A9270-GY; J1100; J3370; J3490; V2787-GY

== ENCOUNTER 2023-12-19 07:58 | Day surgery (SDC) | payer OTHER ==
[2023-12-19] MEDS ORDERED: Ondansetron 4 MG/2 ML SDV IVPUSH PRN (08:00)
[2023-12-19] MEDS ORDERED: Acetaminophen/Codeine 300-30 MG Tab PO PRN (08:00)
[2023-12-19] MEDS ORDERED: Acetaminophen 325 MG Tab PO PRN (08:00)
[2023-12-19] MEDS: Proparacaine 0.5% Ophth Soln 15 ML Bottle EYERT ONE ×2 (08:14→09:21)
[2023-12-19] MEDS: Moxifloxacin 0.5% Ophth Soln 3 ML Bottle EYERT ONE (08:15)
[2023-12-19] MEDS: Povidone-Iodine 5% Sterile Ophth Soln 30 ML Bottle EYERT ONE ×2 (08:16→09:21)
[2023-12-19] MEDS: Tropicamide 1% Ophth Soln 15 ML Bottle EYERT ONE (08:17)
[2023-12-19] MEDS: Phenylephrine 10% Ophth Soln 5 ML Bot EYERT ONE (08:17)
[2023-12-19] MEDS: Timolol Maleate 0.5% Ophth Soln 5 ML Bottle EYERT ONE (08:18)
[2023-12-19] MEDS: Cataract Ophth Solution EYERT ONE (08:19)
[2023-12-19] MEDS: Sodium Chloride 0.9% 10 ML Syringe FLUSH PRN (08:23)
[2023-12-19] MEDS: Apraclonidine 0.5% Ophth Soln 5 ML Bot EYERT ONE (09:21)
[2023-12-19] MEDS: Dexamethasone/Neomycin/Polymyxin B Ophth Oint 3.5 GM Tube EYERT ONE (09:22)
[2023-12-19] MEDS: Vancomycin 500 MG SDV EYERT ONE (09:22)
[2023-12-19] MEDS: Diclofenac Sodium 0.1% Ophth Soln 5 ML Bottle EYERT ONE (09:22)
[2023-12-19] MEDS: Lidocaine 1% 30 ML SDV ONE (09:22)
[2023-12-19] MEDS: Balanced Salt Solution Ophth Irrig 500 ML Bottle IOCULAR ONE (09:22)
[2023-12-19] MEDS: Chondroitin Sulfate/Hyaluronate Sodium Ophth Inj 0.75 ML Syringe EYERT ONE (09:23)
[2023-12-19 10:08] VITALS: BP 140/66; PULSE 70
== END 2023-12-19 10:00 | disposition home or self-care (01) ==
LOC: DL.SDS 07:58
PROVIDERS: ATTEND Ophthalmology
DX: H25.811 Combined forms of age-related cataract, right eye (principal); E78.5 Hyperlipidemia, unspecified; I12.9 Hypertensive chronic kidney disease with stage 1 through stage 4 chronic kidney disease, or unspecified chronic kidney disease; N18.30 Chronic kidney disease, stage 3 unspecified; K21.9 Gastro-esophageal reflux disease without esophagitis; Z79.899 Other long term (current) drug therapy; Z98.890 Other specified postprocedural states
CPT/HCPCS: 66982; A9270; J3370; V2787; J3490